=== PATIENT | female | born 1960 | race Caucasian/White ===

== ENCOUNTER 2016-11-16 17:30 | Inpatient (IN) | payer OTHER, MEDICARE, MEDICAID ==
[~2016-11-16] VITALS: Ht 167.6 cm; Wt 110.8 kg
[2016-11-16] VITALS (10 sets, daily range): BP systolic 116–128; BP diastolic 5–65; PULSE 59–70; TEMP 97–98.2
[~2016-11-16 17:30] MED LIST changes: -ANECREAM30; -APRESOLINE50 MG PO; -BENADRYL25 M2 PO; -CARDURA4 MG PO; -CENTRUM SILVER1 TA2 PO; -FISH OIL 1000MG1 CAP PO; -LASIX 80MG TABL80 MG PO; -LOPRESSOR 550 MG/TAB PO; -MELAT3MGTAB PO; -MIRALAX PA17 GM/Dose; -NORCO 325 MG-51 TAB PO; -NOVOLOG FLEX100 U/ML SQ; -PROBIOTIC FORMU1 CAP PO; -REFRESH TEARS 330 ML OD; -RENAGEL800 MG PO; -ROXICODONE 55 MG/TAB PO; -SENNA8.6 MG PO; -TRESIBA FL100 UNIT/1 SQ; -TYLENOL 8 HR PO; -VITAMIN D 50,1.25 MG PO; -VITAMINC1000TA PO; -ZAROXOLYN5 MG PO; -[UNRECOGNIZED DRUG - OTHER] PO
[2016-11-16 18:47] LABS: MEAN CELL VOLUME 103 fl (80.0-100.0); MEAN CORPUSCULAR HGB CONC 30 g/dl (33.0-37.0); MEAN PLATELET VOLUME 9.4 fl (7.4-10.4); PLATELET COUNT 195 K/mm3 (130-400); RED BLOOD COUNT 1.51 M/mm3 (4.10-5.30); REDCELL DISTRIBUTION WIDTH-CV 15.7 % (11.5-14.5); WHITE BLOOD COUNT 10.2 K/mm3 (4.8-10.8)
[2016-11-16 18:48] LABS: HEMATOCRIT 15.6 % (37.0-47.0); MEAN CORPUSCULAR HEMOGLOBIN 30 pg (27.0-31.0)
[2016-11-16 18:49] LABS: ADD PATHOLOGY DIFF REVIEW NO; HEMOGLOBIN 4.6 g/dl (12.5-16.0)
[2016-11-16 19:00] LABS: POTASSIUM 4.5 mmol/L (3.4-5.0)
[2016-11-16 19:01] LABS: ADJUSTED CALCIUM 9.5 mg/dL (8.4-10.2); ALBUMIN 3.1 gm/dL (3.5-5.0); BILIRUBIN,TOTAL 0.9 mg/dL (0.0-1.0); CALCIUM 8.8 mg/dL (8.4-10.2); CREATININE, serum 3.59 mg/dL (0.52-1.25); TOTAL PROTEIN 6.4 gm/dL (6.4-8.2)
[2016-11-16] MEDS ORDERED: LASIX 80MG TABL80 MG PO (19:20)
[2016-11-16] MEDS ORDERED: NORCO 325 MG-51 TAB PO (19:20)
[2016-11-16] MEDS ORDERED: ZAROXOLYN5 MG PO (19:21)
[2016-11-16] MEDS ORDERED: VITAMIN D 50,1.25 MG PO (19:22)
[2016-11-16] MEDS ORDERED: CATAPRES 0.1MG0.1 MG PO (19:23)
[2016-11-16] MEDS ORDERED: MELAT3MGTAB PO (19:23)
[2016-11-16] MEDS ORDERED: APRESOLINE50 MG PO (19:24)
[2016-11-16] MEDS ORDERED: CARDURA4 MG PO (19:24)
[2016-11-16] MEDS ORDERED: TRESIBA FL100 UNIT/1 SQ (19:25)
[2016-11-16] MEDS ORDERED: NOVOLOG FLEX100 U/ML SQ (19:25)
[2016-11-16] MEDS ORDERED: LIPITOR20 MG PO (19:26)
[2016-11-16] MEDS ORDERED: NORVASC 10MG10 MG PO (19:26)
[2016-11-16] MEDS ORDERED: LOPRESSOR 550 MG/TAB PO (19:26)
[2016-11-16] MEDS ORDERED: VITAMINC1000TA PO (19:27)
[2016-11-16] MEDS ORDERED: TYLENOL 8 HR PO (19:27)
[2016-11-16] MEDS ORDERED: FISH OIL 1000MG1 CAP PO (19:28)
[2016-11-16] MEDS ORDERED: ASPIRIN 81M81 MG/TA2 PO (19:29)
[2016-11-16 20:02] LABS: BAND 8 % (0-10); EOSINOPHIL 2 % (0-4); HYPOCHROMIA 1+; MYELOCYTE 1 % (0-0); NEUTROPHILS 82 % (42.0-75.2); PLATELET ESTIMATE NORMAL (NORMAL); TOTAL CELLS COUNTED 100
[2016-11-17] VITALS (12 sets, daily range): BP systolic 118–145; BP diastolic 53–71; PULSE 57–71; TEMP 97.1–98.7
[2016-11-17 06:47] LABS: BASO % 0.2 % (0.0-2.0); EOS # 0.4 (0.0-0.7); EOS % 4.4 % (0-4.0); GRAN # 6.7 (1.4-6.5); GRAN % 75.5 % (42.2-75.2); LYMPH # 0.7 (1.2-3.4); LYMPH % 7.7 % (20.0-51.0); MEAN CORPUSCULAR HGB CONC 31 g/dl (33.0-37.0); MEAN PLATELET VOLUME 9.1 fl (7.4-10.4); PLATELET COUNT 177 K/mm3 (130-400); REDCELL DISTRIBUTION WIDTH-CV 18.2 % (11.5-14.5); WHITE BLOOD COUNT 8.8 K/mm3 (4.8-10.8)
[2016-11-17 06:50] LABS: HEMATOCRIT 19.5 % (37.0-47.0); HEMOGLOBIN 6.1 g/dl (12.5-16.0); MEAN CELL VOLUME 98 fl (80.0-100.0); MEAN CORPUSCULAR HEMOGLOBIN 31 pg (27.0-31.0)
[2016-11-17 07:08] LABS: CALCIUM 8.6 mg/dL (8.4-10.2); CREATININE, serum 3.62 mg/dL (0.52-1.25); POTASSIUM 4.4 mmol/L (3.4-5.0)
[2016-11-17 12:22] LABS: HEMATOCRIT 23.6 % (37.0-47.0); HEMOGLOBIN 7.7 g/dl (12.5-16.0)
[2016-11-18] VITALS (10 sets, daily range): BP systolic 115–148; BP diastolic 41–58; PULSE 62–91; TEMP 98.2–99.7
[2016-11-18 07:33] LABS: BASO % 0.5 % (0.0-2.0); CALCIUM 8.9 mg/dL (8.4-10.2); CREATININE, serum 2.67 mg/dL (0.52-1.25); EOS # 0.3 (0.0-0.7); EOS % 3.6 % (0-4.0); GRAN # 6.7 (1.4-6.5); GRAN % 75.1 % (42.2-75.2); LYMPH # 0.6 (1.2-3.4); MEAN CELL VOLUME 97 fl (80.0-100.0); MEAN CORPUSCULAR HGB CONC 31 g/dl (33.0-37.0); MEAN PLATELET VOLUME 9.7 fl (7.4-10.4); MONO # 1.1 (0.1-0.6); MONO % 12.8 % (1.7-9.3); PLATELET COUNT 201 K/mm3 (130-400); POTASSIUM 3.9 mmol/L (3.4-5.0); RED BLOOD COUNT 2.36 M/mm3 (4.10-5.30); REDCELL DISTRIBUTION WIDTH-CV 16.9 % (11.5-14.5); WHITE BLOOD COUNT 8.9 K/mm3 (4.8-10.8)
[2016-11-18 07:38] LABS: HEMATOCRIT 22.9 % (37.0-47.0); HEMOGLOBIN 7.2 g/dl (12.5-16.0); MEAN CORPUSCULAR HEMOGLOBIN 31 pg (27.0-31.0)
[2016-11-19 04:29] VITALS: BP 152/59; PULSE 63; TEMP 98.7
[2016-11-19 07:52] VITALS: BP 156/64; PULSE 70; TEMP 98.6
[2016-11-19 07:53] LABS: BASO % 0.4 % (0.0-2.0); EOS # 0.4 (0.0-0.7); EOS % 3.4 % (0-4.0); GRAN % 77.4 % (42.2-75.2); LYMPH # 0.6 (1.2-3.4); LYMPH % 5.4 % (20.0-51.0); MEAN CELL VOLUME 96 fl (80.0-100.0); MEAN CORPUSCULAR HGB CONC 32 g/dl (33.0-37.0); MEAN PLATELET VOLUME 9.4 fl (7.4-10.4); MONO # 1.3 (0.1-0.6); MONO % 12.5 % (1.7-9.3); PLATELET COUNT 223 K/mm3 (130-400); RED BLOOD COUNT 2.77 M/mm3 (4.10-5.30); REDCELL DISTRIBUTION WIDTH-CV 16.1 % (11.5-14.5); WHITE BLOOD COUNT 10.3 K/mm3 (4.8-10.8)
[2016-11-19 08:05] LABS: HEMATOCRIT 26.5 % (37.0-47.0); HEMOGLOBIN 8.4 g/dl (12.5-16.0); MEAN CORPUSCULAR HEMOGLOBIN 30 pg (27.0-31.0)
[2016-11-19 08:54] LABS: ADJUSTED CALCIUM 9.8 mg/dL (8.4-10.2); BILIRUBIN,TOTAL 1.1 mg/dL (0.0-1.0); CREATININE, serum 3.18 mg/dL (0.52-1.25); POTASSIUM 4.2 mmol/L (3.4-5.0); TOTAL PROTEIN 6.3 gm/dL (6.4-8.2)
[2016-11-19 15:26] VITALS: BP 151/56; PULSE 70; TEMP 98.4
[2016-11-19 19:24] VITALS: BP 144/52; PULSE 78; TEMP 99.1
[2016-11-19 23:28] VITALS: BP 148/53; PULSE 75; TEMP 99.1
[2016-11-20 03:44] VITALS: BP 143/54; PULSE 71; TEMP 98.4
[2016-11-20 07:42] VITALS: BP 139/49; PULSE 71; TEMP 99.2
[2016-11-20] MEDS ORDERED: APRESOLINE50 MG PO (10:49)
[2016-11-20] MEDS ORDERED: VITAMIN D 50,1.25 MG PO (10:50)
[2017-03-17] MEDS ORDERED: ULTRAM 50MG TAB50 MG PO (11:48)
[2017-03-17] MEDS ORDERED: NORVASC 10MG10 MG PO (11:48)
[2017-03-17] MEDS ORDERED: REFRESH TEARS 330 ML OD (11:49)
[2017-03-17] MEDS ORDERED: PROBIOTIC FORMU1 CAP PO (11:51)
[2017-03-17] MEDS ORDERED: MIRALAX PA17 GM/Dose (11:52)
[2017-03-17] MEDS ORDERED: ANECREAM30 (11:53)
[2017-03-17] MEDS ORDERED: CENTRUM SILVER1 TA2 PO (11:54)
[2017-03-17] MEDS ORDERED: SENNA8.6 MG PO (11:54)
[2017-03-17] MEDS ORDERED: RENAGEL800 MG PO (11:55)
[2017-03-17] MEDS ORDERED: [UNRECOGNIZED DRUG - OTHER] PO (11:58)
== END 2016-11-20 12:48 | DRG 682 ==
LOC: ICU 17:30 → MEDICAL 17:30
PROVIDERS: Internal Medicine
PROC: 5A1D60Z (ICD-10-PCS; principal; 2016-11-17)
DX: I12.0 Hypertensive chronic kidney disease with stage 5 chronic kidney disease or end stage renal disease (principal); N18.6 End stage renal disease; Z68.41 Body mass index [BMI] 40.0-44.9, adult; D63.1 Anemia in chronic kidney disease; E11.22 Type 2 diabetes mellitus with diabetic chronic kidney disease; E87.70 Fluid overload, unspecified; E66.01 Morbid (severe) obesity due to excess calories; M25.561 Pain in right knee; L89.152 Pressure ulcer of sacral region, stage 2; Z99.2 Dependence on renal dialysis
CPT/HCPCS: J0882; J1815; J7050; P9016

== ENCOUNTER → 2016-11-16 | Outpatient (REF) ==
[2016-11-16] VITALS (264 sets, daily range): BP systolic 121; BP diastolic 51; PULSE 66; TEMP 97.4; O2SAT 85–100
[~2016-11-16] VITALS: Ht 167.6 cm; Wt 117.2 kg
[~2016-11-16] MED LIST: ANECREAM30; APRESOLINE 25MG25 MG PO; APRESOLINE50 MG PO; ASPIRIN 81M81 MG/TA2 PO; BENADRYL25 M2 PO; CARDURA4 MG PO; CATAPRES 0.1MG0.1 MG PO; CENTRUM SILVER1 TA2 PO; COLACE 100100 MG/CAP PO; FERROUS SU325 MG/TAB PO; FISH OIL 1000MG1 CAP PO; GLUCOPHAGE1000 MG PO; HUMALOG100 U/ML SQ; HYTRIN 2MG CAPSU2 MG PO; JANUVIA25 MG PO; KAYEXALATE15 GM/60 M PO; KLONOPIN 0.5MG0.5 MG PO; LANTUS100 U/ML SQ; LASIX 40MG TABL40 MG PO; LASIX 80MG TABL80 MG PO; LIPITOR 10MG10 MG PO; LIPITOR20 MG PO; LOPRESSOR 550 MG/TAB PO; MELAT3MGTAB PO; MIRALAX PA17 GM/Dose; NATURAL VITAM1000 MG PO; NATURE'S BLEN5000 IU PO; NORCO 325 MG-51 TAB PO; NORVASC 10MG10 MG PO; NOVOLOG 100U100 U/M1 SQ; NOVOLOG FLEX100 U/ML SQ; OMEGA-3 FISH1000 MG PO; PEPCID 20MG TAB20 MG PO; PERCOCET 325 MG1 TA2 PO; PRINZIDE 12.5 M1 TAB PO; PROBIOTIC FORMU1 CAP PO; REFRESH TEARS 330 ML OD; RENAGEL800 MG PO; RENVELA800 MG PO; ROXICODONE 55 MG/TAB PO; SENNA8.6 MG PO; SODIUM BICARBO650 MG PO; TOPROL XL 25MG25 MG PO; TRESIBA FL100 UNIT/1 SQ; TYLENOL 325MG325 MG PO; TYLENOL 8 HR PO; ULTRAM 50MG TAB50 MG PO; VITAMIN D 50,1.25 MG PO; VITAMINC1000TA PO; ZAROXOLYN5 MG PO; [UNRECOGNIZED DRUG - OTHER] PO
[2016-11-16 16:35] LABS: HEMATOCRIT 15.4 % (37.0-47.0)
[2016-11-16 16:36] LABS: HEMOGLOBIN 4.6 g/dl (12.5-16.0)
[2016-11-17] VITALS (788 sets, daily range): O2SAT 72–100
== END ==
LOC: ZCOL.LAB 16:30
PROVIDERS: Internal Medicine
DX: Z01.89 Encounter for other specified special examinations (principal)

== ENCOUNTER → 2016-11-24 | Outpatient (CLI) | payer OTHER, MEDICARE, MEDICAID ==
[~2016-11-24] MED LIST changes: +ANECREAM30; +APRESOLINE50 MG PO; +BENADRYL25 M2 PO; +CARDURA4 MG PO; +CENTRUM SILVER1 TA2 PO; +FISH OIL 1000MG1 CAP PO; +LASIX 80MG TABL80 MG PO; +LOPRESSOR 550 MG/TAB PO; +MELAT3MGTAB PO; +MIRALAX PA17 GM/Dose; +NORCO 325 MG-51 TAB PO; +NOVOLOG FLEX100 U/ML SQ; +PROBIOTIC FORMU1 CAP PO; +REFRESH TEARS 330 ML OD; +RENAGEL800 MG PO; +ROXICODONE 55 MG/TAB PO; +SENNA8.6 MG PO; +TRESIBA FL100 UNIT/1 SQ; +TYLENOL 8 HR PO; +VITAMIN D 50,1.25 MG PO; +VITAMINC1000TA PO; +ZAROXOLYN5 MG PO; +[UNRECOGNIZED DRUG - OTHER] PO
[2016-11-24 17:57] LABS: BASO # 0.1 (0.0-0.2); BASO % 0.5 % (0.0-2.0); EOS # 0.2 (0.0-0.7); EOS % 1.9 % (0-4.0); GRAN # 10.2 (1.4-6.5); GRAN % 80.8 % (42.2-75.2); HEMATOCRIT 25.9 % (37.0-47.0); HEMOGLOBIN 8.2 g/dl (12.5-16.0); LYMPH # 0.6 (1.2-3.4); LYMPH % 4.5 % (20.0-51.0); MEAN CELL VOLUME 96 fl (80.0-100.0); MEAN CORPUSCULAR HEMOGLOBIN 30 pg (27.0-31.0); MEAN CORPUSCULAR HGB CONC 32 g/dl (33.0-37.0); MEAN PLATELET VOLUME 9.9 fl (7.4-10.4); MONO # 1.5 (0.1-0.6); MONO % 11.5 % (1.7-9.3); PLATELET COUNT 247 K/mm3 (130-400); RED BLOOD COUNT 2.71 M/mm3 (4.10-5.30); WHITE BLOOD COUNT 12.7 K/mm3 (4.8-10.8)
== END ==
LOC: ZCOL.LAB 17:52
PROVIDERS: Internal Medicine
DX: Z01.89 Encounter for other specified special examinations (principal)

== ENCOUNTER → 2016-11-30 | Outpatient (CLI) | payer OTHER, MEDICARE, MEDICAID | LOC: WCC 10:30 | DX: L89.890 Pressure ulcer of other site, unstageable (principal); L89.899 Pressure ulcer of other site, unspecified stage; E11.9 Type 2 diabetes mellitus without complications | CPT/HCPCS: 17719; 27510; A6197; A6212; G0463 ==

== ENCOUNTER → 2016-12-14 | Outpatient (CLI) | payer OTHER, MEDICARE, MEDICAID | LOC: WCC 09:28 | DX: E11.622 Type 2 diabetes mellitus with other skin ulcer (principal); L97.129 Non-pressure chronic ulcer of left thigh with unspecified severity; L97.119 Non-pressure chronic ulcer of right thigh with unspecified severity; L98.499 Non-pressure chronic ulcer of skin of other sites with unspecified severity; E11.22 Type 2 diabetes mellitus with diabetic chronic kidney disease; N18.6 End stage renal disease; E66.01 Morbid (severe) obesity due to excess calories | CPT/HCPCS: 17717; A6212; G0463 ==

== ENCOUNTER → 2017-03-14 | Outpatient (CLI) | payer OTHER, MEDICARE, MEDICAID | LOC: COL.RAD 12:30 | DX: M75.82 Other shoulder lesions, left shoulder (principal); M19.012 Primary osteoarthritis, left shoulder; M25.412 Effusion, left shoulder ==

== ENCOUNTER → 2017-03-20 | Outpatient (CLI) | payer OTHER, MEDICARE, MEDICAID ==
[~2017-03-20] VITALS: Ht 167.6 cm; Wt 83.1 kg
[2017-03-20 07:43] VITALS: BP 160/73; PULSE 65
[2017-03-20 08:25] VITALS: BP 156/68; PULSE 65
== END ==
LOC: COL.RAD 07:13
DX: Z45.2 Encounter for adjustment and management of vascular access device (principal)

== ENCOUNTER 2017-04-03 09:54 | Outpatient (CLI) | payer OTHER, MEDICARE, MEDICAID ==
[~2017-04-03] VITALS: Ht 167.7 cm; Wt 86.8 kg
[~2017-04-03 09:54] MED LIST changes: -BENADRYL25 M2 PO; -ROXICODONE 55 MG/TAB PO
[2017-04-03 10:21] VITALS: BP 125/36; PULSE 79; TEMP 97.7
[2017-04-03] MEDS ORDERED: BENADRYL25 M2 PO (10:39)
[2017-04-03 12:05] VITALS: BP 163/37; PULSE 61
[2017-04-03 13:05] VITALS: BP 132/34; PULSE 62
[2017-04-03 13:08] VITALS: BP 136/27; PULSE 61
[2017-04-03 13:20] VITALS: BP 138/36; PULSE 62
[2017-04-03 13:45] VITALS: BP 135/43; PULSE 62
== END 2017-04-03 14:02 | disposition home or self-care (01) ==
LOC: COL.CAR 09:54
DX: T82.898A Other specified complication of vascular prosthetic devices, implants and grafts, initial encounter (principal); M79.81 Nontraumatic hematoma of soft tissue; I12.0 Hypertensive chronic kidney disease with stage 5 chronic kidney disease or end stage renal disease; E11.22 Type 2 diabetes mellitus with diabetic chronic kidney disease; N18.6 End stage renal disease; Z99.2 Dependence on renal dialysis
CPT/HCPCS: Q9967

== ENCOUNTER 2017-05-01 22:26 | Emergency (ER) | payer OTHER, MEDICARE, MEDICAID ==
[~2017-05-01] VITALS: Ht 167.6 cm; Wt 88.2 kg
[~2017-05-01 22:26] MED LIST changes: +BENADRYL25 M2 PO
[2017-05-01 22:29] VITALS: TEMP 98.4
[2017-05-01 23:24] LABS: BASO # 0.1 (0.0-0.2); BASO % 0.8 % (0.0-2.0); EOS # 0.9 (0.0-0.7); EOS % 7.3 % (0-4.0); GRAN # 8.9 (1.4-6.5); GRAN % 72.5 % (42.2-75.2); HEMATOCRIT 38.5 % (37.0-47.0); LYMPH # 1.4 (1.2-3.4); LYMPH % 11.6 % (20.0-51.0); MEAN CELL VOLUME 95 fl (80.0-100.0); MEAN CORPUSCULAR HEMOGLOBIN 32 pg (27.0-31.0); MEAN CORPUSCULAR HGB CONC 34 g/dl (33.0-37.0); MEAN PLATELET VOLUME 9.3 fl (7.4-10.4); MONO # 0.9 (0.1-0.6); MONO % 7.3 % (1.7-9.3); PLATELET COUNT 170 K/mm3 (130-400); RED BLOOD COUNT 4.07 M/mm3 (4.10-5.30); REDCELL DISTRIBUTION WIDTH-CV 12.8 % (11.5-14.5); WHITE BLOOD COUNT 12.3 K/mm3 (4.8-10.8)
[2017-05-01 23:33] LABS: ADJUSTED CALCIUM 10.7 mg/dL (8.4-10.2); BILIRUBIN,TOTAL 0.5 mg/dL (0.0-1.0); CALCIUM 10.7 mg/dL (8.4-10.2); POTASSIUM 5.4 mmol/L (3.4-5.0); TOTAL PROTEIN 7.6 gm/dL (6.4-8.2)
[2017-05-01 23:34] LABS: CREATININE, serum 4.02 mg/dL (0.52-1.25)
[2017-05-01 23:38] LABS: PH 6 (5-8); SQUAMOUS EPITHELIAL 0-2 /hpf; URINE APPEARANCE Hazy; URINE BACTERIA None Seen /hpf; URINE BILIRUBIN Negative (NEGATIVE); URINE BLOOD Negative (NEGATIVE); URINE COLOR Yellow; URINE GLUCOSE 3+ (NEGATIVE); URINE KETONE Negative (NEGATIVE); URINE UROBILINOGEN Negative (NEGATIVE); URINE WBC 0-2 /hpf
[2017-05-02] MEDS ORDERED: ROXICODONE 55 MG/TAB PO (00:10)
[2017-05-02 00:30] VITALS: BP 151/66; PULSE 61
== END 2017-05-02 00:30 ==
LOC: COL.ER 22:26
PROVIDERS: Emergency Medicine
DX: R10.9 Unspecified abdominal pain (principal); E11.22 Type 2 diabetes mellitus with diabetic chronic kidney disease; I12.0 Hypertensive chronic kidney disease with stage 5 chronic kidney disease or end stage renal disease; N18.6 End stage renal disease; I50.9 Heart failure, unspecified; Z99.2 Dependence on renal dialysis
CPT/HCPCS: J2405; J3010

== ENCOUNTER → 2017-06-09 | Outpatient (REF) ==
[~2017-06-09] MED LIST changes: +ROXICODONE 55 MG/TAB PO
[2017-06-09 04:25] LABS: MEAN CELL VOLUME 98 fl (80.0-100.0); MEAN CORPUSCULAR HGB CONC 33 g/dl (33.0-37.0); MEAN PLATELET VOLUME 10.7 fl (7.4-10.4); PLATELET COUNT 113 K/mm3 (130-400); RED BLOOD COUNT 2.71 M/mm3 (4.10-5.30); REDCELL DISTRIBUTION WIDTH-CV 13.5 % (11.5-14.5); WHITE BLOOD COUNT 12.2 K/mm3 (4.8-10.8)
[2017-06-09 04:42] LABS: HEMATOCRIT 26.5 % (37.0-47.0); HEMOGLOBIN 8.8 g/dl (12.5-16.0); MEAN CORPUSCULAR HEMOGLOBIN 32 pg (27.0-31.0)
[2017-06-09 04:43] LABS: ADD PATHOLOGY DIFF REVIEW NO
[2017-06-09 04:51] LABS: ANISOCYTOSIS 1+; BAND 4 % (0-10); EOSINOPHIL 1 % (0-4); HYPOCHROMIA 1+; NEUTROPHILS 85 % (42.0-75.2); POLYCHROMASIA 1+; ROULEAUX 1+; TOTAL CELLS COUNTED 100
[2017-06-09 04:52] LABS: MICROCYTOSIS 1+; POIKILOCYTOSIS 1+
== END ==
LOC: ZCOL.LAB 04:20
PROVIDERS: Internal Medicine
DX: Z01.89 Encounter for other specified special examinations (principal)

== ENCOUNTER → 2017-06-17 | Outpatient (CLI) | payer OTHER, MEDICARE, MEDICAID | LOC: ZCOL.LAB 15:30 | DX: K59.09 Other constipation (principal) ==

== ENCOUNTER → 2017-06-25 | Outpatient (CLI) | payer OTHER, MEDICARE, MEDICAID | LOC: ZCOL.LAB 10:21 | DX: R19.5 Other fecal abnormalities (principal) ==

== ENCOUNTER → 2017-08-02 | Outpatient (CLI) | payer OTHER, MEDICARE, MEDICAID ==
[~2017-08-02] MED LIST changes: +ASPIRIN E.C. 8181 MG PO; +CENTRUM SILVER1 TAB; +CLARITIN LIQUI-10 MG PO; +IMODIUM 2MG CAPS2 MG PO; +LEVAQUIN 5500 MG/TA1 PO; +REFRESH TEARS 330 ML OP; +ZOFRAN 4MG T4 MG/TAB PO
== END ==
LOC: COL.RAD 13:42
DX: M79.89 Other specified soft tissue disorders (principal)

== ENCOUNTER 2017-08-03 06:32 | Emergency (ER) | payer OTHER, MEDICARE, MEDICAID ==
[~2017-08-03] VITALS: Ht 167.6 cm; Wt 100.2 kg
[~2017-08-03 06:32] MED LIST changes: -ASPIRIN E.C. 8181 MG PO; -CENTRUM SILVER1 TAB; -CLARITIN LIQUI-10 MG PO; -IMODIUM 2MG CAPS2 MG PO; -LEVAQUIN 5500 MG/TA1 PO; -REFRESH TEARS 330 ML OP; -ZOFRAN 4MG T4 MG/TAB PO
[2017-08-03 06:38] VITALS: TEMP 98.8
[2017-08-03] MEDS ORDERED: ASPIRIN E.C. 8181 MG PO (07:24)
[2017-08-03] MEDS ORDERED: CENTRUM SILVER1 TAB (07:25)
[2017-08-03] MEDS ORDERED: REFRESH TEARS 330 ML OP (07:27)
[2017-08-03] MEDS ORDERED: ZOFRAN 4MG T4 MG/TAB PO (07:28)
[2017-08-03] MEDS ORDERED: IMODIUM 2MG CAPS2 MG PO (07:29)
[2017-08-03] MEDS ORDERED: CLARITIN LIQUI-10 MG PO (07:29)
[2017-08-03] MEDS ORDERED: NORVASC 10MG10 MG PO (07:31)
[2017-08-03 07:50] LABS: HEMATOCRIT 32.9 % (37.0-47.0); HEMOGLOBIN 10.9 g/dl (12.5-16.0); MEAN CELL VOLUME 97 fl (80.0-100.0); MEAN CORPUSCULAR HEMOGLOBIN 32 pg (27.0-31.0); MEAN CORPUSCULAR HGB CONC 33 g/dl (33.0-37.0); MEAN PLATELET VOLUME 9.8 fl (7.4-10.4); PLATELET COUNT 178 K/mm3 (130-400); RED BLOOD COUNT 3.38 M/mm3 (4.10-5.30); WHITE BLOOD COUNT 17.5 K/mm3 (4.8-10.8)
[2017-08-03 07:51] LABS: ADD PATHOLOGY DIFF REVIEW NO
[2017-08-03 08:01] LABS: ADJUSTED CALCIUM 10.3 mg/dL (8.4-10.2); ALBUMIN 3.4 gm/dL (3.5-5.0); BILIRUBIN,TOTAL 0.8 mg/dL (0.0-1.0); CALCIUM 9.8 mg/dL (8.4-10.2); CREATININE, serum 3.71 mg/dL (0.52-1.25); POTASSIUM 4.4 mmol/L (3.4-5.0); TOTAL PROTEIN 6.9 gm/dL (6.4-8.2)
[2017-08-03 08:05] LABS: COLLECTION METHOD CATHETER
[2017-08-03 08:07] LABS: BAND 6 % (0-10); EOSINOPHIL 2 % (0-4); LYMPHOCYTE 6 % (20.0-51.0); NEUTROPHILS 83 % (42.0-75.2); PLATELET ESTIMATE NORMAL (NORMAL); TOTAL CELLS COUNTED 100
[2017-08-03 08:10] LABS: HYPOCHROMIA 1+
[2017-08-03 08:16] LABS: PH 7 (5-8); URINE APPEARANCE Cloudy; URINE BACTERIA Rare /hpf; URINE BILIRUBIN Negative (NEGATIVE); URINE BLOOD Negative (NEGATIVE); URINE COLOR Yellow; URINE GLUCOSE 3+ (NEGATIVE); URINE KETONE Negative (NEGATIVE); URINE LEUKOCYTE ESTERASE 3+ (NEGATIVE); URINE PROTEIN(semi-quant) 3+ (NEGATIVE); URINE RBC 0-2 /hpf; URINE UROBILINOGEN Negative (NEGATIVE); URINE WBC >50 /hpf
[2017-08-03] MEDS ORDERED: LEVAQUIN 5500 MG/TA1 PO (08:17)
[2017-08-03 08:20] LABS: C-REACTIVE PROTEIN 22.1 mg/dL (0.0-0.9)
[2017-08-03 10:45] VITALS: BP 99/72; PULSE 74
== END 2017-08-03 10:45 | disposition home or self-care (01) ==
LOC: COL.ER 06:32
PROVIDERS: Family Medicine
DX: L03.116 Cellulitis of left lower limb (principal); I13.0 Hypertensive heart and chronic kidney disease with heart failure and stage 1 through stage 4 chronic kidney disease, or unspecified chronic kidney disease; N18.9 Chronic kidney disease, unspecified; I50.9 Heart failure, unspecified; G62.9 Polyneuropathy, unspecified; Z79.82 Long term (current) use of aspirin

== ENCOUNTER → 2017-08-12 | Outpatient (CLI) | payer OTHER, MEDICARE, MEDICAID ==
[~2017-08-12] MED LIST changes: +ASPIRIN E.C. 8181 MG PO; +CENTRUM SILVER1 TAB; +CLARITIN LIQUI-10 MG PO; +IMODIUM 2MG CAPS2 MG PO; +LEVAQUIN 5500 MG/TA1 PO; +REFRESH TEARS 330 ML OP; +ZOFRAN 4MG T4 MG/TAB PO
== END ==
LOC: ZCOL.LAB 12:26
DX: Z01.89 Encounter for other specified special examinations (principal)

== ENCOUNTER → 2017-09-05 | Outpatient (CLI) | payer OTHER, MEDICARE, MEDICAID ==
[2017-09-05 08:05] LABS: BASO # 0.1 (0.0-0.2); BASO % 0.8 % (0.0-2.0); EOS # 0.9 (0.0-0.7); EOS % 7.9 % (0-4.0); GRAN # 7.8 (1.4-6.5); GRAN % 70.7 % (42.2-75.2); LYMPH # 1.4 (1.2-3.4); LYMPH % 12.7 % (20.0-51.0); MEAN CELL VOLUME 98 fl (80.0-100.0); MEAN CORPUSCULAR HGB CONC 33 g/dl (33.0-37.0); MONO # 0.8 (0.1-0.6); PLATELET COUNT 129 K/mm3 (130-400); RED BLOOD COUNT 3.18 M/mm3 (4.10-5.30)
[2017-09-05 08:06] LABS: HEMOGLOBIN 10.3 g/dl (12.5-16.0); MEAN CORPUSCULAR HEMOGLOBIN 32 pg (27.0-31.0)
== END ==
LOC: ZCOL.LAB 07:46
PROVIDERS: Internal Medicine
DX: E11.22 Type 2 diabetes mellitus with diabetic chronic kidney disease (principal); R79.89 Other specified abnormal findings of blood chemistry; Z79.82 Long term (current) use of aspirin; Z99.2 Dependence on renal dialysis; Z88.1 Allergy status to other antibiotic agents; Z88.0 Allergy status to penicillin; Z88.8 Allergy status to other drugs, medicaments and biological substances

== ENCOUNTER → 2017-12-05 | Outpatient (CLI) | payer OTHER, MEDICARE, MEDICAID ==
[2017-12-05 14:47] LABS: COLLECTION METHOD CLEAN CATCH
[2017-12-05 14:55] LABS: BUDDING YEAST Present /hpf; PH 5 (5-8); URINE APPEARANCE Hazy; URINE BACTERIA None Seen /hpf; URINE BILIRUBIN Negative (NEGATIVE); URINE BLOOD Negative (NEGATIVE); URINE COLOR Yellow; URINE GLUCOSE 2+ (NEGATIVE); URINE KETONE Negative (NEGATIVE); URINE LEUKOCYTE ESTERASE Negative (NEGATIVE); URINE NITRATE Negative (NEGATIVE); URINE PROTEIN(semi-quant) 3+ (NEGATIVE); URINE RBC 0-2 /hpf; URINE UROBILINOGEN Negative (NEGATIVE)
== END ==
LOC: ZCOL.LAB 14:44
PROVIDERS: Internal Medicine
DX: E11.22 Type 2 diabetes mellitus with diabetic chronic kidney disease (principal)

== ENCOUNTER 2017-12-16 04:16 | Emergency (ER) | payer OTHER, MEDICARE, MEDICAID ==
[2017-12-16 04:20] VITALS: TEMP 97.1
[2017-12-16 04:48] LABS: BASO # 0.1 (0.0-0.2); BASO % 0.5 % (0.0-2.0); EOS # 0.3 (0.0-0.7); EOS % 2.3 % (0-4.0); GRAN # 11.1 (1.4-6.5); GRAN % 77.3 % (42.2-75.2); HEMATOCRIT 28.4 % (37.0-47.0); HEMOGLOBIN 9.3 g/dl (12.5-16.0); LYMPH # 1.5 (1.2-3.4); LYMPH % 10.5 % (20.0-51.0); MEAN CELL VOLUME 101 fl (80.0-100.0); MEAN CORPUSCULAR HEMOGLOBIN 33 pg (27.0-31.0); MEAN CORPUSCULAR HGB CONC 33 g/dl (33.0-37.0); MEAN PLATELET VOLUME 9.9 fl (7.4-10.4); MONO # 1.2 (0.1-0.6); MONO % 8.1 % (1.7-9.3); PLATELET COUNT 180 K/mm3 (130-400); RED BLOOD COUNT 2.81 M/mm3 (4.10-5.30); REDCELL DISTRIBUTION WIDTH-CV 13.8 % (11.5-14.5)
[2017-12-16 04:57] LABS: ALANINE AMINOTRANSFERASE 33 U/L (9-52); ALBUMIN 3.7 gm/dL (3.5-5.0); ALKALINE PHOSPHATASE 105 U/L (50-136); ANION GAP 14 mmol/L (7-16); AST,SGOT 28 U/L (15-37); BILIRUBIN,TOTAL 0.3 mg/dL (0.0-1.0); BLOOD UREA NITROGEN 35 mg/dL (7-17); CALCIUM 10.1 mg/dL (8.4-10.2); CARBON DIOXIDE 17 mmol/L (22-30); CHLORIDE 100 mmol/L (98-107); GLUCOSE 227 mg/dL (74-106); SODIUM 131 mmol/L (137-145); TOTAL PROTEIN 7.1 gm/dL (6.4-8.2)
[2017-12-16 04:59] LABS: CREATININE, serum 4.11 mg/dL (0.52-1.25); POTASSIUM 6.3 mmol/L (3.4-5.0); PROTHROMBIN TIME 11.3 SECONDS (9.7-12.8)
[2017-12-16 05:09] LABS: TROPONIN-I < 0.012 ng/mL (0.000-0.034)
[2017-12-16 05:51] VITALS: BP 111/47; PULSE 34
[2017-12-16] MEDS ORDERED: LIPITOR 10MG10 MG PO (06:15)
[2017-12-16] MEDS ORDERED: REGLAN 5MG T5 MG/TAB PO (06:16)
[2017-12-16] MEDS ORDERED: AMITRIPTYLINE H10 M1 PO (06:16)
== END 2017-12-16 05:52 | disposition short-term general hospital (02) ==
LOC: COL.ER 04:16
PROVIDERS: Emergency Medicine
DX: I44.2 Atrioventricular block, complete (principal); E11.22 Type 2 diabetes mellitus with diabetic chronic kidney disease; I13.2 Hypertensive heart and chronic kidney disease with heart failure and with stage 5 chronic kidney disease, or end stage renal disease; N18.6 End stage renal disease; R79.89 Other specified abnormal findings of blood chemistry; E78.5 Hyperlipidemia, unspecified; Z99.2 Dependence on renal dialysis; Z90.710 Acquired absence of both cervix and uterus; Z90.89 Acquired absence of other organs; Z98.890 Other specified postprocedural states
CPT/HCPCS: J0461; J0610; J1265; J1815

== ENCOUNTER → 2018-01-24 | Outpatient (CLI) | payer OTHER, MEDICARE, MEDICAID ==
[~2018-01-24] MED LIST changes: +AMITRIPTYLINE H10 M1 PO; +REGLAN 5MG T5 MG/TAB PO
== END ==
LOC: COL.RAD 08:55
DX: D47.2 Monoclonal gammopathy (principal)

== ENCOUNTER → 2018-03-02 | Outpatient (CLI) | payer OTHER, MEDICARE, MEDICAID ==
[~2018-03-02] MED LIST changes: +CENTRUM SILVER1 CTB PO; +CLARITIN 1010 MG/TAB; +EPOGEN10000 U/ML; +MIRALAX PA17 GM/Dose PO
== END ==
LOC: COL.RAD 11:00
DX: D47.2 Monoclonal gammopathy (principal); J98.11 Atelectasis; J90 Pleural effusion, not elsewhere classified; E11.22 Type 2 diabetes mellitus with diabetic chronic kidney disease; N18.6 End stage renal disease; Z99.2 Dependence on renal dialysis
CPT/HCPCS: Q9967

== ENCOUNTER → 2018-04-06 | Outpatient (CLI) | payer OTHER, MEDICARE, MEDICAID | LOC: COL.RAD 04-05 08:15 | DX: Z13.89 Encounter for screening for other disorder (principal); M79.89 Other specified soft tissue disorders; R60.0 Localized edema; M43.8X6 Other specified deforming dorsopathies, lumbar region ==

== ENCOUNTER → 2018-04-25 | Outpatient (CLI) | payer OTHER, MEDICARE, MEDICAID ==
[~2018-04-25] VITALS: Ht 167.6 cm; Wt 92.3 kg
[~2018-04-25] MED LIST changes: +DAZIDOX10 MG PO
[2018-04-25 13:34] VITALS: BP 121/64; PULSE 75
[2018-04-25 14:18] VITALS: BP 136/56; PULSE 75
[2018-04-25 14:30] VITALS: BP 136/63; PULSE 72
[2018-04-25 14:45] VITALS: BP 122/55; PULSE 63
== END ==
LOC: COL.RAD 12:18
DX: S32.020A Wedge compression fracture of second lumbar vertebra, initial encounter for closed fracture (principal); S32.000A Wedge compression fracture of unspecified lumbar vertebra, initial encounter for closed fracture; M43.17 Spondylolisthesis, lumbosacral region; M48.061 Spinal stenosis, lumbar region without neurogenic claudication
CPT/HCPCS: G9654; J2250; J2405; J2704

== ENCOUNTER → 2018-06-23 | Outpatient (CLI) | payer OTHER, MEDICARE, MEDICAID ==
[2018-06-23 13:06] LABS: PH 7 (5-8); URINE APPEARANCE Cloudy; URINE BACTERIA Rare /hpf; URINE BILIRUBIN Negative (NEGATIVE); URINE BLOOD Negative (NEGATIVE); URINE COLOR Yellow; URINE GLUCOSE 2+ (NEGATIVE); URINE KETONE Negative (NEGATIVE); URINE LEUKOCYTE ESTERASE 3+ (NEGATIVE); URINE NITRATE Negative (NEGATIVE); URINE PROTEIN(semi-quant) 3+ (NEGATIVE); URINE UROBILINOGEN Negative (NEGATIVE); URINE WBC >50 /hpf
[2018-06-25 16:07] LABS: COLLECTION METHOD RANDOM VOIDED
== END ==
LOC: ZCOL.LAB 08:06
PROVIDERS: Internal Medicine
DX: N39.0 Urinary tract infection, site not specified (principal)

== ENCOUNTER 2018-08-13 01:58 | Inpatient (IN) | payer OTHER, MEDICARE, MEDICAID ==
[2018-08-13] VITALS (586 sets, daily range): BP systolic 74–138; BP diastolic 46–82; PULSE 95–131; TEMP 98–98.7; O2SAT 69–100
[~2018-08-13] VITALS: Ht 167.6 cm; Wt 88.6 kg
[2018-08-13 02:35] LABS: BASO # 0.1 (0.0-0.2); BASO % 0.2 % (0.0-2.0); GRAN # 27.3 (1.4-6.5); GRAN % 86.6 % (42.2-75.2); LYMPH # 1.7 (1.2-3.4); LYMPH % 5.3 % (20.0-51.0); MEAN CELL VOLUME 99 fl (80.0-100.0); MEAN CORPUSCULAR HGB CONC 33 g/dl (33.0-37.0); MEAN PLATELET VOLUME 10.8 fl (7.4-10.4); MONO # 1.9 (0.1-0.6); PLATELET COUNT 244 K/mm3 (130-400); RED BLOOD COUNT 2.81 M/mm3 (4.10-5.30); REDCELL DISTRIBUTION WIDTH-CV 15.4 % (11.5-14.5)
[2018-08-13 02:39] LABS: HEMATOCRIT 27.7 % (37.0-47.0); MEAN CORPUSCULAR HEMOGLOBIN 32 pg (27.0-31.0)
[2018-08-13 02:44] LABS: INR 1.6 (0.8-3.0); PROTHROMBIN TIME 18.6 SECONDS (9.7-12.8)
[2018-08-13 02:45] LABS: ALBUMIN 3.9 gm/dL (3.5-5.0); BILIRUBIN,TOTAL 1.1 mg/dL (0.0-1.0); CALCIUM 9.4 mg/dL (8.4-10.2); TOTAL PROTEIN 7.2 gm/dL (6.4-8.2)
[2018-08-13 02:47] LABS: CREATININE, serum 4.72 mg/dL (0.52-1.25); POTASSIUM 6.8 mmol/L (3.4-5.0)
[2018-08-13 02:53] LABS: BAND 10 % (0-10); LYMPHOCYTE 5 % (20.0-51.0); NEUTROPHILS 80 % (42.0-75.2); PLATELET ESTIMATE NORMAL (NORMAL)
[2018-08-13 02:54] LABS: HYPOCHROMIA 1+
[2018-08-13 02:55] LABS: POLYCHROMASIA 1+
[2018-08-13 02:56] LABS: TROPONIN-I 0.116 ng/mL (0.000-0.034)
[2018-08-13 03:20] LABS: COLLECTION METHOD CATHETER
[2018-08-13] MEDS ORDERED: CENTRUM1 TA1 PO (03:22)
[2018-08-13 03:27] LABS: ARTERIAL BLD GAS O2 SATURATION 85.4 % (92-100); ARTERIAL BLOOD GAS BASE EXCESS -5.4 (-2-2); ARTERIAL BLOOD GAS HCO3 18.1 meq/L (22-26); ARTERIAL BLOOD GAS PCO2 28.6 mmHg (35-45); ARTERIAL BLOOD GAS PO2 56.2 mmHg (80-100); ARTERIAL BLOOD GAS pH 7.42 (7.35-7.45)
[2018-08-13 03:29] LABS: HYALINE CAST >12 /lpf; PH 6 (5-8); URINE APPEARANCE Cloudy; URINE BACTERIA Rare /hpf; URINE BILIRUBIN Negative (NEGATIVE); URINE BLOOD 1+ (NEGATIVE); URINE COLOR Amber; URINE GLUCOSE 1+ (NEGATIVE); URINE KETONE Negative (NEGATIVE); URINE LEUKOCYTE ESTERASE 2+ (NEGATIVE); URINE NITRATE Negative (NEGATIVE); URINE PROTEIN(semi-quant) 2+ (NEGATIVE); URINE UROBILINOGEN Negative (NEGATIVE)
[2018-08-13] MEDS ORDERED: DULCOLAX S10 MG/SUPP RC (03:42)
[2018-08-13] MEDS ORDERED: MILK OF MA400 MG/52 PO (03:42)
[2018-08-13] MEDS ORDERED: ZOFRAN 4MG T4 MG/TAB PO (03:43)
[2018-08-13] MEDS ORDERED: PROTONIX 40MG T40 MG PO (03:44)
[2018-08-13] MEDS ORDERED: GERI-TUSSI100 MG/5 M PO (03:44)
[2018-08-13] MEDS ORDERED: REGLAN 5MG T5 MG/TAB PO (03:44)
[2018-08-13] MEDS ORDERED: PLAVIX 75MG TAB75 MG PO (06:17)
[2018-08-13] MEDS ORDERED: MIRALAX PA17 GM/Dose PO (07:41)
[2018-08-13] MEDS ORDERED: NORVASC 10MG10 MG PO (07:49)
[2018-08-13 09:10] LABS: MEAN CELL VOLUME 95 fl (80.0-100.0); MEAN CORPUSCULAR HGB CONC 34 g/dl (33.0-37.0); MEAN PLATELET VOLUME 10.6 fl (7.4-10.4); PLATELET COUNT 226 K/mm3 (130-400); RED BLOOD COUNT 2.85 M/mm3 (4.10-5.30); REDCELL DISTRIBUTION WIDTH-CV 15.3 % (11.5-14.5)
[2018-08-13 09:13] LABS: CALCIUM 9.4 mg/dL (8.4-10.2); POTASSIUM 5.3 mmol/L (3.4-5.0)
[2018-08-13 09:17] LABS: HEMATOCRIT 27.1 % (37.0-47.0); HEMOGLOBIN 9.1 g/dl (12.5-16.0); MEAN CORPUSCULAR HEMOGLOBIN 32 pg (27.0-31.0)
[2018-08-13 09:22] LABS: CREATININE, serum 4.85 mg/dL (0.52-1.25)
[2018-08-13 09:38] LABS: BAND 11 % (0-10); LYMPHOCYTE 5 % (20.0-51.0); NEUTROPHILS 80 % (42.0-75.2)
[2018-08-13 09:39] LABS: PLATELET ESTIMATE NORMAL (NORMAL)
[2018-08-13 13:07] LABS: PARTIAL THROMBOPLASTIN TIME 39.7 SECONDS (26.0-37.0)
[2018-08-14] VITALS (281 sets, daily range): BP systolic 90–131; BP diastolic 7–94; PULSE 98–130; TEMP 97.4–97.8; O2SAT 89–100
[2018-08-14 05:28] LABS: MEAN CELL VOLUME 95 fl (80.0-100.0); MEAN CORPUSCULAR HGB CONC 34 g/dl (33.0-37.0); MEAN PLATELET VOLUME 10.4 fl (7.4-10.4); PLATELET COUNT 262 K/mm3 (130-400); RED BLOOD COUNT 2.81 M/mm3 (4.10-5.30); REDCELL DISTRIBUTION WIDTH-CV 14.9 % (11.5-14.5)
[2018-08-14 05:31] LABS: HEMATOCRIT 26.7 % (37.0-47.0); MEAN CORPUSCULAR HEMOGLOBIN 32 pg (27.0-31.0)
[2018-08-14 05:41] LABS: ALBUMIN 3.5 gm/dL (3.5-5.0); BILIRUBIN,TOTAL 0.6 mg/dL (0.0-1.0); CALCIUM 9.5 mg/dL (8.4-10.2); POTASSIUM 4.7 mmol/L (3.4-5.0); TOTAL PROTEIN 6.9 gm/dL (6.4-8.2)
[2018-08-14 05:43] LABS: CREATININE, serum 5.82 mg/dL (0.52-1.25)
[2018-08-14 05:46] LABS: ANISOCYTOSIS 1+; LYMPHOCYTE 5 % (20.0-51.0); METAMYELOCYTE 1 % (0-0); NEUTROPHILS 86 % (42.0-75.2); PLATELET ESTIMATE NORMAL (NORMAL)
== END 2018-08-14 11:45 | disposition short-term general hospital (02) | DRG 871 ==
LOC: COL.ER 01:58 → ICU 03:02
PROVIDERS: Emergency Medicine; Internal Medicine; Internal Medicine Nephrology
DX: A41.9 Sepsis, unspecified organism (principal); N18.6 End stage renal disease; R65.21 Severe sepsis with septic shock; I30.9 Acute pericarditis, unspecified; I50.32 Chronic diastolic (congestive) heart failure; I13.2 Hypertensive heart and chronic kidney disease with heart failure and with stage 5 chronic kidney disease, or end stage renal disease; E87.2 Acidosis; E87.1 Hypo-osmolality and hyponatremia; E11.22 Type 2 diabetes mellitus with diabetic chronic kidney disease; Z99.2 Dependence on renal dialysis; E11.42 Type 2 diabetes mellitus with diabetic polyneuropathy; E78.5 Hyperlipidemia, unspecified; J45.909 Unspecified asthma, uncomplicated; D63.1 Anemia in chronic kidney disease; E11.319 Type 2 diabetes mellitus with unspecified diabetic retinopathy without macular edema; E66.01 Morbid (severe) obesity due to excess calories; Z68.31 Body mass index [BMI] 31.0-31.9, adult; E11.51 Type 2 diabetes mellitus with diabetic peripheral angiopathy without gangrene; E11.43 Type 2 diabetes mellitus with diabetic autonomic (poly)neuropathy; K31.84 Gastroparesis; G89.29 Other chronic pain; E87.5 Hyperkalemia; Z95.820 Peripheral vascular angioplasty status with implants and grafts; I48.91 Unspecified atrial fibrillation; E11.65 Type 2 diabetes mellitus with hyperglycemia; L89.619 Pressure ulcer of right heel, unspecified stage
CPT/HCPCS: A4216; J0692; J0882; J1160; J1200; J1644; J1650; J1720; J1815; J1956; J3370; J7040; J7050; J7060

== ENCOUNTER 2018-10-22 06:14 | Inpatient (IN) | payer OTHER, MEDICARE, MEDICAID ==
--- NOTE | 2018-10-19 19:57 | NUR ---
LM on pt's voicemail in regards to procedure instructions.
[2018-10-22] VITALS (13 sets, daily range): BP systolic 123–168; BP diastolic 43–78; PULSE 40–60; TEMP 97.4–98.5
[~2018-10-22] VITALS: Ht 167.6 cm; Wt 83.0 kg
[~2018-10-22 06:14] MED LIST changes: +CENTRUM1 TA1 PO; +DULCOLAX S10 MG/SUPP RC; +GERI-TUSSI100 MG/5 M PO; +MILK OF MA400 MG/52 PO; +PLAVIX 75MG TAB75 MG PO; +PROTONIX 40MG T40 MG PO; +SENNA-LAX8.6 MG PO; -SENNA8.6 MG PO
[2018-10-22 07:16] LABS: HEMOGLOBIN 10.6 g/dl (12.5-16.0); MEAN CELL VOLUME 97 fl (80.0-100.0); MEAN CORPUSCULAR HEMOGLOBIN 31 pg (27.0-31.0); MEAN CORPUSCULAR HGB CONC 32 g/dl (33.0-37.0); MEAN PLATELET VOLUME 10.4 fl (7.4-10.4); PLATELET COUNT 142 K/mm3 (130-400); RED BLOOD COUNT 3.47 M/mm3 (4.10-5.30); REDCELL DISTRIBUTION WIDTH-CV 16.1 % (11.5-14.5)
[2018-10-22 07:18] LABS: HEMATOCRIT 33.6 % (37.0-47.0)
[2018-10-22 07:23] LABS: PROTHROMBIN TIME 11.4 SECONDS (9.7-12.8)
[2018-10-22 07:26] LABS: CALCIUM 9.9 mg/dL (8.4-10.2); CREATININE, serum 3.7 mg/dL (0.52-1.25); POTASSIUM 5.5 mmol/L (3.4-5.0)
[2018-10-22] MEDS ORDERED: COUMADIN 2MG2 MG/TAB PO (09:10)
[2018-10-22] MEDS ORDERED: OXY IR5 MG PO ×2 (09:12)
[2018-10-22] MEDS ORDERED: BENADRYL25 M2 PO (09:16)
[2018-10-22] MEDS ORDERED: CLARITIN 1010 MG/TAB PO (09:18)
[2018-10-22] MEDS ORDERED: MUCINEX DM 30 M1 TE1 PO (09:20)
[2018-10-22] MEDS ORDERED: CORDARONE200 MG/TAB PO (09:24)
[2018-10-22] MEDS ORDERED: NYAMYC100000 U/G TP (09:30)
[2018-10-22] MEDS ORDERED: NEPHPLEX RX1 TAB PO (09:31)
--- NOTE | 2018-10-22 13:05 | NUR ---
PT ARRIVED FROM SURGERY VIA BED. PT HAS SLING ON RIGHT ARM, DRSG WITH PAPER TAPE AND GAUZE OVER RIGHT UPPER CHEST AREA WHICH IS CLEAN, DRY, INTACT, AND NO BRUISING, OR HEMATOMA. PT DENIES PAIN AT THIS TIME. PT ADVISES THAT DRSG ON LEFT ANKLE IS BECAUSE OF AN ULCER FROM A BED SORE AND THAT THE RIGHT ANKLE HAS GUAZE AROUND IT A PREVENATIVE MEASURE. PT IS WHEEL CHAIR BOUND AND CAN STAND TO PIVOT TRANSFER, BUT STILL NEEDS ASSISTANCE OF 2. PT ON DIALYSIS AND GOES ON MONDAY, MONDAY, AND MONDAY. PT HAS FISTULA ON LEFT UPPER ARM. RESTRICTION BAND PLACE ON ARM. PT ORDERED LUNCH AND WAS FEED BY ME, BECAUSE SHE SAYS THAT SHE COULD NOT FEED HERSELF WITH HER LEFT HAND AND WAS TOLD NOT TO USE HER RIGHT HAND. PT ATE 100% OF LUNCH. PT ADVISES THAT SHE IS NORMALLY ON A FLUID RESTRICTION OF 1,000 ML PER DAY. PT WAS GIVEN 300 ML OF WATER AT THIS TIME.
--- NOTE | 2018-10-22 19:25 | NUR ---
PT HAD SOME C/O PAIN IN RIGHT CHEST AREA AND WAS GIVEN PAIN MEDICATION. PT WAS FEED A SNACK AROUND 1600 AND THEN FED SUPPER WHICH PT ORDERED A DOUBLE PORTION. PT WAS ASSISTED UP TO BEDSIDE COMMODE AND THEN BACK TO BED. PT HAD A SMALL BM. PT HAS CALL LIGHT IN REACH. PT HAD CONCERNS ABOUT DIALYSIS TOMORROW, BECAUSE THAT IS HER NORMAL DAY. DR. BECK WAS CONSULTED. PT RESTING IN BED AND IS COMFORTABLE AT THIS TIME. NO FURTHER NEEDS.
--- NOTE | 2018-10-22 22:32 | NUR ---
PT HAS A OLD SCARE ON HIMANSHU- BARRIER CREAM APPLIED. HEELS ARE WRAPPED AND PT REPORTS DRESSING ARE CHANGED IN AM. BM YESTERDAY- EVERY OTHER DAY NORMAL FOR PT. LUNGS- RIGHT LL CRACKLES. NO PAIN. NO NEEDS AT THIS TIME. CALL LIGHT IN REACH. BED ALARM ON.
[2018-10-23 00:46] VITALS: BP 131/50; PULSE 61; TEMP 98.5
--- NOTE | 2018-10-23 05:22 | NUR ---
pt had an uneventfu night. turned Q2. pain in abd-prn meds given and reports relief. no soa. right arm in sling. IV flushes well, no redness, no swelling no needs at this time. call light in reach
[2018-10-23 05:37] VITALS: BP 146/57; PULSE 60; TEMP 98
[2018-10-23] MEDS ORDERED: RENAGEL800 MG PO (06:37)
[2018-10-23 07:00] VITALS: BP 134/55; PULSE 65; TEMP 98
--- NOTE | 2018-10-23 07:00 | NUR ---
Report on to TERRI Zepeda.
--- NOTE | 2018-10-23 07:20 | NUR ---
Assessment completed. VSS. Resting in bed. Rt side drsg to chest wall CDI. Telemetry on. Rt arm in sling. Bilateral gauze drsg to heels CDI. CMS checks normal and bilaterally equal. INT to Rt wrist CDI. Fistula is intact and patent. Pt. complains of no pain.
--- NOTE | 2018-10-23 07:22 | NUR ---
pt dressing clean dry and intact throughout night. report given to TERRI Zepeda. pt reports no needs
--- NOTE | 2018-10-23 09:31 | NUR ---
Pt wheeled down to dialysis at this time.
--- NOTE | 2018-10-23 09:43 | NUR ---
Pt assessment complete. Pt is A/O x3 her breathing is even and unlabored on RA. Pt denies SOB. No pain at this time. Soreness to R chest, site CDI. R arm in sling. Pt assisted to bedside cammode with assistance of two. Will go to dialysis this morning. No N/V.
[2018-10-23] MEDS ORDERED: NORVASC 5MG5 MG/TAB PO (11:13)
[2018-10-23] MEDS ORDERED: CLEOCIN HCL300 MG PO (11:14)
[2018-10-23] MEDS ORDERED: PACERONE100 MG PO (11:18)
[2018-10-23] MEDS ORDERED: PACERONE200 MG PO (11:20)
--- NOTE | 2018-10-23 11:32 | NUR ---
Contacted by dialysis nurse requesting a pain med for patient, Roxicodone taken down to dialysis for patient.
--- NOTE | 2018-10-23 11:34 | NUR ---
Pt. transferred to dialysis on second floor via hospital bed. Stated she was comfortable and was asleep when I left the area @ 1030.
--- NOTE | 2018-10-23 13:38 | NUR ---
KELLY met with patient to discuss discharge planning. She resides at [facility] in jail care. Her pcp is Dr sams and she obtains her medications from [facility]. Patient is dc back to [facility] today for jail care. DC faxed and wheelchair van transport set for 3/3:30pm. There are no other discharge needs at this time.
--- NOTE | 2018-10-23 15:39 | NUR ---
Pt left facility with [employer] employee at this time. IF to [facility] dc'd, catheter tip intact.
--- NOTE | 2018-10-23 15:49 | NUR ---
Pt report given to Lianet.
== END 2018-10-23 15:50 | DRG 242 ==
LOC: COL.CAR 06:14 → EDSTATUS 09:15 → COL.CAR 09:15 → MEDICAL 12:40 → COL.CAR 10-23 09:51 → MEDICAL 10-23 09:51
PROVIDERS: ADMIT Internal Medicine Cardiovascular Disease
PROC: 0JH606Z Insertion of Pacemaker, Dual Chamber into Chest Subcutaneous Tissue and Fascia, Open Approach (ICD-10-PCS; principal; 2018-10-22)
PROC: 02H63JZ Insertion of Pacemaker Lead into Right Atrium, Percutaneous Approach (ICD-10-PCS; 2018-10-22)
PROC: 02HK3JZ Insertion of Pacemaker Lead into Right Ventricle, Percutaneous Approach (ICD-10-PCS; 2018-10-22)
PROC: 5A1D70Z Performance of Urinary Filtration, Intermittent, Less than 6 Hours Per Day (ICD-10-PCS; 2018-10-23)
DX: I44.1 Atrioventricular block, second degree (principal); N18.6 End stage renal disease; I13.2 Hypertensive heart and chronic kidney disease with heart failure and with stage 5 chronic kidney disease, or end stage renal disease; I50.32 Chronic diastolic (congestive) heart failure; N25.81 Secondary hyperparathyroidism of renal origin; I48.0 Paroxysmal atrial fibrillation; E11.22 Type 2 diabetes mellitus with diabetic chronic kidney disease; Z99.2 Dependence on renal dialysis; E78.5 Hyperlipidemia, unspecified; E11.40 Type 2 diabetes mellitus with diabetic neuropathy, unspecified; J45.909 Unspecified asthma, uncomplicated; I73.9 Peripheral vascular disease, unspecified; Z95.820 Peripheral vascular angioplasty status with implants and grafts; E11.319 Type 2 diabetes mellitus with unspecified diabetic retinopathy without macular edema; D63.1 Anemia in chronic kidney disease; G89.29 Other chronic pain; E87.5 Hyperkalemia
CPT/HCPCS: OP; C1769; C1785; C1898; J2250; J3010; J7030

== ENCOUNTER → 2018-12-27 | Outpatient (REF) ==
[~2018-12-27] MED LIST changes: +CLARITIN 1010 MG/TAB PO; +CLEOCIN HCL300 MG PO; +CORDARONE200 MG/TAB PO; +COUMADIN 2MG2 MG/TAB PO; +MUCINEX DM 30 M1 TE1 PO; +NEPHPLEX RX1 TAB PO; +NORVASC 5MG5 MG/TAB PO; +NYAMYC100000 U/G TP; +OXY IR5 MG PO; +PACERONE100 MG PO; +PACERONE200 MG PO
[2018-12-27 13:46] LABS: COLLECTION METHOD CLEAN CATCH
[2018-12-27 14:01] LABS: BUDDING YEAST Present /hpf; MUCOUS Present /lpf; PH 8 (5-8); SQUAMOUS EPITHELIAL 0-2 /hpf; URINE APPEARANCE Turbid; URINE BACTERIA Moderate /hpf; URINE BILIRUBIN Negative (NEGATIVE); URINE BLOOD 2+ (NEGATIVE); URINE COLOR Amber; URINE GLUCOSE Negative (NEGATIVE); URINE KETONE Negative (NEGATIVE); URINE LEUKOCYTE ESTERASE 2+ (NEGATIVE); URINE NITRATE Negative (NEGATIVE); URINE PROTEIN(semi-quant) 2+ (NEGATIVE); URINE RBC 20-50 /hpf; URINE UROBILINOGEN Negative (NEGATIVE); URINE WBC >50 /hpf
== END ==
LOC: ZCOL.LAB 13:45
PROVIDERS: Internal Medicine
DX: N39.0 Urinary tract infection, site not specified (principal)

== ENCOUNTER → 2019-01-10 | Outpatient (REF) | LOC: ZCOL.LAB 12:15 | PROVIDERS: Internal Medicine | DX: Z01.89 Encounter for other specified special examinations (principal) ==

== ENCOUNTER 2019-01-30 17:00 | Inpatient (IN) | payer OTHER, MEDICARE, MEDICAID ==
[~2019-01-30] VITALS: Ht 167.6 cm; Wt 96.8 kg
[~2019-01-30 17:00] MED LIST changes: -AURYXIA1 GM; -CEFTIN500 MG PO; -COUMADIN4 MG PO; -PROTONIX20 MG PO; -SMZ/TMPDS PO; -VITAMIN C500 MG PO
[2019-01-30 17:48] VITALS: BP 96/76; PULSE 60; TEMP 98.3
[2019-01-30] MEDS ORDERED: REFRESH TEARS 330 ML OP (18:13)
[2019-01-30] MEDS ORDERED: PROTONIX20 MG PO (18:15)
[2019-01-30] MEDS ORDERED: AURYXIA1 GM (18:16)
[2019-01-30] MEDS ORDERED: COUMADIN4 MG PO (18:17)
[2019-01-30] MEDS ORDERED: VITAMIN C500 MG PO (18:21)
--- NOTE | 2019-01-30 18:39 | NUR ---
Pt admitted to unit direct admit. Pt lives at [facility]. Pt has left heel ulcer with small amt yellow drainage noted. Pt denies SOB or pain. Pt has left upper arm fistula restricted extremity. Pt has call light in reach.
[2019-01-30 18:49] VITALS: BP 96/76; PULSE 60; TEMP 98.3
[2019-01-30 22:44] LABS: BASO % 0.3 % (0.0-2.0); EOS # 0.2 (0.0-0.7); EOS % 2.6 % (0-4.0); GRAN # 7.4 (1.4-6.5); GRAN % 80.2 % (42.2-75.2); HEMOGLOBIN 10.5 g/dl (12.5-16.0); LYMPH % 10.4 % (20.0-51.0); MEAN CELL VOLUME 99 fl (80.0-100.0); MEAN CORPUSCULAR HEMOGLOBIN 32 pg (27.0-31.0); MEAN CORPUSCULAR HGB CONC 33 g/dl (33.0-37.0); MEAN PLATELET VOLUME 9.9 fl (7.4-10.4); MONO # 0.6 (0.1-0.6); PLATELET COUNT 111 K/mm3 (130-400); RED BLOOD COUNT 3.24 M/mm3 (4.10-5.30); REDCELL DISTRIBUTION WIDTH-CV 14.4 % (11.5-14.5)
[2019-01-30 22:54] LABS: HEMATOCRIT 31.9 % (37.0-47.0)
[2019-01-30 23:03] LABS: ALBUMIN 3.6 gm/dL (3.5-5.0); BILIRUBIN,TOTAL 0.5 mg/dL (0.0-1.0); CALCIUM 8.8 mg/dL (8.4-10.2); POTASSIUM 5.6 mmol/L (3.4-5.0); TOTAL PROTEIN 6.8 gm/dL (6.4-8.2)
[2019-01-30 23:04] LABS: CREATININE, serum 4.67 (0.52-1.25)
[2019-01-30 23:05] LABS: ERYTHROCYTE SEDIMENTATION RATE 50 mm/hr (0-30)
[2019-01-30 23:14] LABS: C-REACTIVE PROTEIN 17.2 mg/dL (0.0-0.9)
[2019-01-31 00:27] VITALS: BP 150/59; PULSE 59; TEMP 98.6
[2019-01-31 04:45] VITALS: BP 152/59; PULSE 59; TEMP 98
[2019-01-31 07:51] VITALS: BP 161/58; PULSE 59; TEMP 98.3
[2019-01-31 10:09] LABS: BASO % 0.3 % (0.0-2.0); EOS # 0.3 (0.0-0.7); EOS % 4.3 % (0-4.0); GRAN # 4.3 (1.4-6.5); GRAN % 73.9 % (42.2-75.2); HEMATOCRIT 29.1 % (37.0-47.0); HEMOGLOBIN 9.6 g/dl (12.5-16.0); LYMPH % 16.5 % (20.0-51.0); MEAN CELL VOLUME 97 fl (80.0-100.0); MEAN CORPUSCULAR HEMOGLOBIN 32 pg (27.0-31.0); MEAN CORPUSCULAR HGB CONC 33 g/dl (33.0-37.0); MEAN PLATELET VOLUME 9.1 fl (7.4-10.4); MONO # 0.3 (0.1-0.6); MONO % 4.5 % (1.7-9.3); PLATELET COUNT 102 K/mm3 (130-400); REDCELL DISTRIBUTION WIDTH-CV 14.1 % (11.5-14.5)
[2019-01-31 10:33] LABS: ALBUMIN 3.2 gm/dL (3.5-5.0); CALCIUM 8.5 mg/dL (8.4-10.2); PHOSPHOROUS 5.3 mg/dL (2.5-4.5); POTASSIUM 4.6 mmol/L (3.4-5.0)
[2019-01-31 10:40] LABS: CREATININE, serum 4.02 (0.52-1.25)
--- NOTE | 2019-01-31 12:45 | NUR ---
Report from TERRI Aponte
[2019-01-31 12:50] LABS: INR 1.1 (0.8-3.0); PROTHROMBIN TIME 13.2 SECONDS (9.7-12.8)
--- NOTE | 2019-01-31 14:15 | NUR ---
Report given to TERRI Mcmullen to resume care. No change throughout the morning. WBC 5.8 last and the patient completed dialysis without complication.
[2019-01-31 14:24] VITALS: BP 136/47; PULSE 60; TEMP 98.3
--- NOTE | 2019-01-31 15:42 | NUR ---
KELLY met with the patient to discuss discharge plan. The patient resides at [facility] for long-term care. She states that she is waiting until a handicap accessible apartment comes available closer to her home town, [place]. The patient states she plans to return back to [facility] upon discharge. Patient choice form signed by the patient and she was provided a copy. The patient's PCP is Dr. Callie Sosa and her advanced directives are in EMR. KELLY contacted and faxed updates to Fercho at [facility]. KELLY to continue to follow.
--- NOTE | 2019-01-31 17:54 | NUR ---
Patient resting in bed since returning from dialysis. VS stable. IV CDI. Fistula site CDI, gauze and paper tape covering. Denies pain and discomfort. No further needs expressed from patient. Call light within reach. Will continue to monitor
[2019-01-31 20:30] VITALS: BP 138/54; PULSE 54; TEMP 98
[2019-01-31 22:48] VITALS: BP 134/46; PULSE 61; TEMP 98.4
[2019-02-01 00:38] VITALS: BP 134/46; PULSE 60; TEMP 98.4
[2019-02-01 04:23] VITALS: BP 135/49; PULSE 60; TEMP 97.9
[2019-02-01 06:54] LABS: BASO % 0.6 % (0.0-2.0); EOS # 0.3 (0.0-0.7); EOS % 4.9 % (0-4.0); GRAN # 4.1 (1.4-6.5); GRAN % 64.9 % (42.2-75.2); HEMOGLOBIN 10.2 g/dl (12.5-16.0); LYMPH # 1.2 (1.2-3.4); LYMPH % 18.9 % (20.0-51.0); MEAN CELL VOLUME 100 fl (80.0-100.0); MEAN CORPUSCULAR HEMOGLOBIN 32 pg (27.0-31.0); MEAN CORPUSCULAR HGB CONC 32 g/dl (33.0-37.0); MEAN PLATELET VOLUME 9.8 fl (7.4-10.4); MONO # 0.6 (0.1-0.6); MONO % 10.2 % (1.7-9.3); PLATELET COUNT 123 K/mm3 (130-400); RED BLOOD COUNT 3.15 M/mm3 (4.10-5.30); REDCELL DISTRIBUTION WIDTH-CV 14.4 % (11.5-14.5)
--- NOTE | 2019-02-01 07:00 | NUR ---
Report received from Frances Sainz last night. Pt resting in bed with lights off, denies needs, will continue to monitor.
[2019-02-01 07:04] LABS: ALBUMIN 3.3 gm/dL (3.5-5.0); CALCIUM 8.7 mg/dL (8.4-10.2); CREATININE, serum 3.66 (0.52-1.25); PHOSPHOROUS 6.1 mg/dL (2.5-4.5); POTASSIUM 5.5 mmol/L (3.4-5.0)
[2019-02-01 07:08] LABS: HEMATOCRIT 31.5 % (37.0-47.0)
[2019-02-01 07:28] LABS: INR 1.1 (0.8-3.0); PROTHROMBIN TIME 12.7 SECONDS (9.7-12.8)
[2019-02-01 07:45] VITALS: BP 156/53; PULSE 61; TEMP 97.7
--- NOTE | 2019-02-01 08:53 | NUR ---
Assessment charted. Pt resting in bed, denies pain. L heel dressing is CDI, will change today. AV fistula to SINDY, dressing removed and adhesive remover applied per pt for allergy to all tapes. Does not want breakfast, wants to continue to rest with lights off. Will provide, and continue to monitor.
[2019-02-01] MEDS ORDERED: CEFTIN500 MG PO (10:28)
[2019-02-01] MEDS ORDERED: SMZ/TMPDS PO (10:28)
[2019-02-01 10:54] VITALS: BP 156/53; PULSE 61; TEMP 97.7
--- NOTE | 2019-02-01 11:23 | NUR ---
First visit from the credit department manager. No needs right now.
[2019-02-01 11:48] VITALS: BP 154/52; PULSE 60; TEMP 98.1
--- NOTE | 2019-02-01 11:52 | NUR ---
The patient is to discharge today, 02/01, back to [facility] for long-term care. [facility] SW informed the patient and patient's nurse. They were both in agreeance. No additional needs at this time.
--- NOTE | 2019-02-01 12:10 | NUR ---
Changed dressing to L heel site, ucler is scabbed over and healing well. Denies needs, will continue to monitor.
--- NOTE | 2019-02-01 12:23 | NUR ---
Report called to Wendie TORRES. Pt will be prepped for discharge. Ordered herself lunch. Will be leaving with all belongings and escorted out by [facility], packet will be given to transport. Criteria met.
--- NOTE | 2019-02-01 14:35 | NUR ---
Pt left with [facility] staff.
== END 2019-02-01 14:35 | DRG 640 ==
LOC: MEDICAL 17:00
PROVIDERS: ADMIT Internal Medicine Nephrology
PROC: 5A1D70Z Performance of Urinary Filtration, Intermittent, Less than 6 Hours Per Day (ICD-10-PCS; principal; 2019-01-30)
DX: E87.5 Hyperkalemia (principal); N18.6 End stage renal disease; N39.0 Urinary tract infection, site not specified; N25.81 Secondary hyperparathyroidism of renal origin; E11.22 Type 2 diabetes mellitus with diabetic chronic kidney disease; Z99.2 Dependence on renal dialysis; D63.1 Anemia in chronic kidney disease; L89.629 Pressure ulcer of left heel, unspecified stage; E11.43 Type 2 diabetes mellitus with diabetic autonomic (poly)neuropathy; K31.84 Gastroparesis; K59.09 Other constipation; I73.9 Peripheral vascular disease, unspecified; I49.8 Other specified cardiac arrhythmias; Z95.0 Presence of cardiac pacemaker; E66.9 Obesity, unspecified; B96.1 Klebsiella pneumoniae [K. pneumoniae] as the cause of diseases classified elsewhere
CPT/HCPCS: A4216; J0713; J1644; J7030

== ENCOUNTER → 2019-01-30 | Outpatient (CLI) | payer OTHER, MEDICARE, MEDICAID ==
[~2019-01-30] MED LIST changes: +AURYXIA1 GM; +CEFTIN500 MG PO; +COUMADIN4 MG PO; +PROTONIX20 MG PO; +SMZ/TMPDS PO; +VITAMIN C500 MG PO
[2019-01-30 00:47] LABS: COLLECTION METHOD CLEAN CATCH
[2019-01-30 01:00] LABS: MUCOUS Present /lpf; PH 5 (5-8); URINE APPEARANCE Turbid; URINE BACTERIA Moderate /hpf; URINE BILIRUBIN Negative (NEGATIVE); URINE BLOOD 1+ (NEGATIVE); URINE COLOR Amber; URINE GLUCOSE 2+ (NEGATIVE); URINE KETONE Negative (NEGATIVE); URINE LEUKOCYTE ESTERASE 3+ (NEGATIVE); URINE NITRATE Negative (NEGATIVE); URINE PROTEIN(semi-quant) 2+ (NEGATIVE); URINE RBC 20-50 /hpf; URINE UROBILINOGEN Negative (NEGATIVE)
== END ==
LOC: ZCOL.LAB 00:42
PROVIDERS: Internal Medicine Nephrology
DX: Z01.89 Encounter for other specified special examinations (principal)

== ENCOUNTER 2019-03-04 11:39 | Emergency (ER) | payer OTHER, MEDICARE, MEDICAID ==
[~2019-03-04] VITALS: Ht 167.6 cm; Wt 96.8 kg
[~2019-03-04 11:39] MED LIST changes: +AURYXIA1 GM; +CEFTIN500 MG PO; +COUMADIN4 MG PO; +PROTONIX20 MG PO; +SMZ/TMPDS PO; +VITAMIN C500 MG PO
[2019-03-04 11:54] VITALS: TEMP 98.8
[2019-03-04] MEDS ORDERED: MIRALAX PA17 GM/Dose PO (12:36)
[2019-03-04 14:00] LABS: MEAN CELL VOLUME 100 fl (80.0-100.0); MEAN CORPUSCULAR HEMOGLOBIN 32 pg (27.0-31.0); MEAN CORPUSCULAR HGB CONC 32 g/dl (33.0-37.0); MEAN PLATELET VOLUME 9.8 fl (7.4-10.4); PLATELET COUNT 159 K/mm3 (130-400); RED BLOOD COUNT 3.15 M/mm3 (4.10-5.30); REDCELL DISTRIBUTION WIDTH-CV 14.3 % (11.5-14.5)
[2019-03-04 14:01] LABS: HEMATOCRIT 31.4 % (37.0-47.0)
[2019-03-04 14:11] LABS: ALBUMIN 3.6 gm/dL (3.5-5.0); BILIRUBIN,TOTAL 0.6 mg/dL (0.0-1.0); CALCIUM 9.3 mg/dL (8.4-10.2)
[2019-03-04] MEDS ORDERED: OMNICEF 300MG300 MG PO (14:15)
[2019-03-04] MEDS ORDERED: DOXYCYCLINE 10100 MG PO (14:16)
[2019-03-04 14:25] LABS: C-REACTIVE PROTEIN 12.2 mg/dL (0.0-0.9); CREATININE, serum 4.74 (0.52-1.25)
[2019-03-04 15:00] LABS: BAND 5 % (0-10); BASOPHIL 1 % (0-2); EOSINOPHIL 2 % (0-4); LYMPHOCYTE 19 % (20.0-51.0); METAMYELOCYTE 3 % (0-0); NEUTROPHILS 68 % (42.0-75.2); PLATELET ESTIMATE NORMAL (NORMAL)
[2019-03-04 17:20] VITALS: BP 183/72; PULSE 60
== END 2019-03-04 17:20 | disposition home or self-care (01) ==
LOC: COL.ER 11:39
PROVIDERS: Emergency Medicine
DX: L03.116 Cellulitis of left lower limb (principal); I12.0 Hypertensive chronic kidney disease with stage 5 chronic kidney disease or end stage renal disease; E11.22 Type 2 diabetes mellitus with diabetic chronic kidney disease; N18.6 End stage renal disease; D64.9 Anemia, unspecified; Z99.2 Dependence on renal dialysis; Z90.710 Acquired absence of both cervix and uterus; Z79.82 Long term (current) use of aspirin; Z79.01 Long term (current) use of anticoagulants
CPT/HCPCS: A4216; J0692

== ENCOUNTER → 2019-04-09 | Outpatient (CLI) | payer OTHER, MEDICARE, MEDICAID ==
[~2019-04-09] MED LIST changes: +DOXYCYCLINE 10100 MG PO; +OMNICEF 300MG300 MG PO
[2019-04-09 17:58] LABS: CHOLESTEROL RISK RATIO 4.5
== END ==
LOC: ZCOL.LAB 16:22
PROVIDERS: Nurse Practitioner
DX: E78.2 Mixed hyperlipidemia (principal)

== ENCOUNTER 2019-07-31 21:13 | Inpatient (IN) | payer OTHER, MEDICARE, MEDICAID ==
[~2019-07-31] VITALS: Ht 167.6 cm; Wt 115.2 kg
[~2019-07-31 21:13] MED LIST changes: +TYLENOL 500MG500 MG PO; -TYLENOL 8 HR PO
[2019-07-31 22:13] VITALS: BP 147/53; PULSE 60; TEMP 97.9
[2019-07-31 23:01] LABS: MEAN CELL VOLUME 104 fl (80.0-100.0); MEAN CORPUSCULAR HGB CONC 32 g/dl (33.0-37.0); MEAN PLATELET VOLUME 9.7 fl (7.4-10.4); PLATELET COUNT 179 K/mm3 (130-400); RED BLOOD COUNT 1.43 M/mm3 (4.10-5.30); REDCELL DISTRIBUTION WIDTH-CV 16.3 % (11.5-14.5)
[2019-07-31 23:05] LABS: HEMOGLOBIN 4.7 g/dl (12.5-16.0); MEAN CORPUSCULAR HEMOGLOBIN 33 pg (27.0-31.0)
[2019-07-31 23:06] LABS: HEMATOCRIT 14.8 % (37.0-47.0)
[2019-07-31 23:07] LABS: ALBUMIN 2.9 gm/dL (3.5-5.0); BILIRUBIN,TOTAL 0.2 mg/dL (0.0-1.0); CALCIUM 8.2 mg/dL (8.4-10.2); CREATININE, serum 3.1 (0.52-1.25); POTASSIUM 4.3 mmol/L (3.4-5.0); TOTAL PROTEIN 5.4 gm/dL (6.4-8.2)
[2019-07-31 23:13] LABS: INR 11.1 (0.8-3.0)
[2019-07-31 23:21] LABS: BAND 2 % (0-10); BASOPHIL 1 % (0-2); LYMPHOCYTE 27 % (20.0-51.0); NEUTROPHILS 68 % (42.0-75.2); PLATELET ESTIMATE NORMAL (NORMAL)
[2019-07-31 23:57] VITALS: BP 103/39; PULSE 60; TEMP 99.4
[2019-07-31 23:59] VITALS: BP 96/24; PULSE 60; TEMP 98.3
[2019-08-01] VITALS (10 sets, daily range): BP systolic 96–124; BP diastolic 24–57; PULSE 60–61; TEMP 97.5–99.1
[2019-08-01 01:39] LABS: CALCIUM 8.3 mg/dL (8.4-10.2); CREATININE, serum 1.95 (0.52-1.25); POTASSIUM 3.5 mmol/L (3.4-5.0)
[2019-08-01] MEDS ORDERED: CENTRUM1 TA1 PO (01:45)
[2019-08-01] MEDS ORDERED: NEURONTIN100 MG/CAP PO (01:47)
[2019-08-01] MEDS ORDERED: NEPHPLEX RX1 TAB PO (01:48)
[2019-08-01] MEDS ORDERED: VELTASSA8.4 GM PO (01:53)
[2019-08-01] MEDS ORDERED: AURYXIA1 GM PO (01:54)
[2019-08-01 02:30] LABS: HEMATOCRIT 22.7 % (37.0-47.0); HEMOGLOBIN 7.5 g/dl (12.5-16.0)
[2019-08-01 07:54] LABS: MEAN CORPUSCULAR HGB CONC 32 g/dl (33.0-37.0); MEAN PLATELET VOLUME 9.7 fl (7.4-10.4); PLATELET COUNT 141 K/mm3 (130-400); RED BLOOD COUNT 2.16 M/mm3 (4.10-5.30); REDCELL DISTRIBUTION WIDTH-CV 18.5 % (11.5-14.5)
[2019-08-01 07:55] LABS: ALBUMIN 2.8 gm/dL (3.5-5.0); CALCIUM 8.1 mg/dL (8.4-10.2); CREATININE, serum 2.43 (0.52-1.25); POTASSIUM 3.6 mmol/L (3.4-5.0)
[2019-08-01 07:58] LABS: INR 3.6 (0.8-3.0); PROTHROMBIN TIME 43.3 SECONDS (9.7-12.8)
[2019-08-01 08:02] LABS: HEMATOCRIT 20.3 % (37.0-47.0); HEMOGLOBIN 6.5 g/dl (12.5-16.0); MEAN CELL VOLUME 94 fl (80.0-100.0); MEAN CORPUSCULAR HEMOGLOBIN 30 pg (27.0-31.0)
[2019-08-01 08:44] LABS: ANISOCYTOSIS 3+; BAND 3 % (0-10); BASOPHIL 2 % (0-2); LYMPHOCYTE 22 % (20.0-51.0); METAMYELOCYTE 2 % (0-0); NEUTROPHILS 64 % (42.0-75.2); PLATELET ESTIMATE NORMAL (NORMAL)
[2019-08-01 08:45] LABS: HYPOCHROMIA 3+
[2019-08-02] VITALS (16 sets, daily range): BP systolic 113–152; BP diastolic 45–83; PULSE 59–66; TEMP 97–98.8
[2019-08-02 07:31] LABS: MEAN CELL VOLUME 94 fl (80.0-100.0); MEAN CORPUSCULAR HGB CONC 33 g/dl (33.0-37.0); MEAN PLATELET VOLUME 9.8 fl (7.4-10.4); PLATELET COUNT 150 K/mm3 (130-400); RED BLOOD COUNT 2.28 M/mm3 (4.10-5.30); REDCELL DISTRIBUTION WIDTH-CV 18.5 % (11.5-14.5)
[2019-08-02 07:32] LABS: HEMATOCRIT 21.5 % (37.0-47.0); MEAN CORPUSCULAR HEMOGLOBIN 31 pg (27.0-31.0)
[2019-08-02 07:39] LABS: ALBUMIN 2.6 gm/dL (3.5-5.0); CALCIUM 8.3 mg/dL (8.4-10.2); CREATININE, serum 3.72 (0.52-1.25); INR 2.3 (0.8-3.0); PHOSPHOROUS 3.9 mg/dL (2.5-4.5); POTASSIUM 4.1 mmol/L (3.4-5.0)
[2019-08-02 08:08] LABS: ANISOCYTOSIS 1+; BAND 4 % (0-10); EOSINOPHIL 4 % (0-4); LYMPHOCYTE 18 % (20.0-51.0); METAMYELOCYTE 1 % (0-0); NEUTROPHILS 70 % (42.0-75.2); PLATELET ESTIMATE NORMAL (NORMAL)
[2019-08-03] VITALS (9 sets, daily range): BP systolic 112–146; BP diastolic 23–53; PULSE 58–67; TEMP 97.9–98.8
[2019-08-03 08:12] LABS: BASO % 0.4 % (0.0-2.0); EOS # 0.2 (0.0-0.7); EOS % 3.1 % (0-4.0); GRAN # 5.2 (1.4-6.5); GRAN % 68.1 % (42.2-75.2); LYMPH # 1.4 (1.2-3.4); LYMPH % 18.5 % (20.0-51.0); MEAN CELL VOLUME 94 fl (80.0-100.0); MEAN CORPUSCULAR HGB CONC 33 g/dl (33.0-37.0); MEAN PLATELET VOLUME 9.3 fl (7.4-10.4); MONO # 0.6 (0.1-0.6); MONO % 7.9 % (1.7-9.3); PLATELET COUNT 140 K/mm3 (130-400); RED BLOOD COUNT 2.42 M/mm3 (4.10-5.30); REDCELL DISTRIBUTION WIDTH-CV 17.9 % (11.5-14.5)
[2019-08-03 08:24] LABS: INR 1.6 (0.8-3.0); PROTHROMBIN TIME 18.4 SECONDS (9.7-12.8)
[2019-08-03 08:53] LABS: ALBUMIN 2.5 gm/dL (3.5-5.0); CALCIUM 7.9 mg/dL (8.4-10.2); CREATININE, serum 2.81 (0.52-1.25); HEMATOCRIT 22.8 % (37.0-47.0); HEMOGLOBIN 7.5 g/dl (12.5-16.0); MEAN CORPUSCULAR HEMOGLOBIN 31 pg (27.0-31.0); PHOSPHOROUS 3.1 mg/dL (2.5-4.5); POTASSIUM 4.1 mmol/L (3.4-5.0)
[2019-08-04] VITALS (10 sets, daily range): BP systolic 99–145; BP diastolic 35–52; PULSE 59–90; TEMP 98.1–101.8
[2019-08-04 07:59] LABS: BASO % 0.3 % (0.0-2.0); EOS # 0.1 (0.0-0.7); EOS % 0.9 % (0-4.0); GRAN # 11.1 (1.4-6.5); GRAN % 83.6 % (42.2-75.2); LYMPH # 1.2 (1.2-3.4); MEAN CELL VOLUME 96 fl (80.0-100.0); MEAN CORPUSCULAR HGB CONC 32 g/dl (33.0-37.0); MEAN PLATELET VOLUME 9.5 fl (7.4-10.4); MONO # 0.7 (0.1-0.6); MONO % 5.1 % (1.7-9.3); PLATELET COUNT 136 K/mm3 (130-400); REDCELL DISTRIBUTION WIDTH-CV 18.3 % (11.5-14.5)
[2019-08-04 08:05] LABS: HEMATOCRIT 20.2 % (37.0-47.0); HEMOGLOBIN 6.5 g/dl (12.5-16.0); MEAN CORPUSCULAR HEMOGLOBIN 31 pg (27.0-31.0)
[2019-08-04 08:06] LABS: INR 1.2 (0.8-3.0); PROTHROMBIN TIME 14.5 SECONDS (9.7-12.8)
[2019-08-04 08:26] LABS: ALBUMIN 2.3 gm/dL (3.5-5.0); CREATININE, serum 3.87 (0.52-1.25); PHOSPHOROUS 3.7 mg/dL (2.5-4.5); POTASSIUM 4.6 mmol/L (3.4-5.0)
[2019-08-05] VITALS (14 sets, daily range): BP systolic 124–156; BP diastolic 33–64; PULSE 53–61; TEMP 97.6–99.7
[2019-08-05 11:41] LABS: BASO % 0.2 % (0.0-2.0); EOS # 0.2 (0.0-0.7); EOS % 1.1 % (0-4.0); GRAN # 11.1 (1.4-6.5); GRAN % 83.1 % (42.2-75.2); LYMPH # 1.2 (1.2-3.4); LYMPH % 8.7 % (20.0-51.0); MEAN CELL VOLUME 96 fl (80.0-100.0); MEAN CORPUSCULAR HGB CONC 33 g/dl (33.0-37.0); MEAN PLATELET VOLUME 9.3 fl (7.4-10.4); MONO # 0.8 (0.1-0.6); PLATELET COUNT 116 K/mm3 (130-400); RED BLOOD COUNT 1.88 M/mm3 (4.10-5.30); REDCELL DISTRIBUTION WIDTH-CV 17.3 % (11.5-14.5)
[2019-08-05 11:43] LABS: HEMATOCRIT 18.1 % (37.0-47.0); MEAN CORPUSCULAR HEMOGLOBIN 31 pg (27.0-31.0)
[2019-08-05 11:44] LABS: HEMOGLOBIN 5.9 g/dl (12.5-16.0)
[2019-08-05 11:48] LABS: INR 1.3 (0.8-3.0); PROTHROMBIN TIME 15.4 SECONDS (9.7-12.8)
[2019-08-05 12:06] LABS: ALBUMIN 2.1 gm/dL (3.5-5.0); CALCIUM 7.5 mg/dL (8.4-10.2); CREATININE, serum 5.59 (0.52-1.25); PHOSPHOROUS 4.4 mg/dL (2.5-4.5); POTASSIUM 5.4 mmol/L (3.4-5.0)
[2019-08-06 00:17] VITALS: BP 127/48; PULSE 62; TEMP 99.5
[2019-08-06 01:03] VITALS: BP 140/52; PULSE 60; TEMP 99.5
[2019-08-06 03:14] VITALS: BP 158/47; PULSE 60; TEMP 100.3
[2019-08-06 07:12] LABS: INR 1.2 (0.8-3.0); PROTHROMBIN TIME 14.1 SECONDS (9.7-12.8)
[2019-08-06 07:17] LABS: ALBUMIN 2.1 gm/dL (3.5-5.0); CALCIUM 7.5 mg/dL (8.4-10.2); CREATININE, serum 3.68 (0.52-1.25); PHOSPHOROUS 3.7 mg/dL (2.5-4.5); POTASSIUM 4.8 mmol/L (3.4-5.0)
[2019-08-06 07:44] LABS: BASO % 0.2 % (0.0-2.0); EOS # 0.1 (0.0-0.7); EOS % 0.5 % (0-4.0); GRAN # 14.5 (1.4-6.5); GRAN % 86.4 % (42.2-75.2); LYMPH % 5.9 % (20.0-51.0); MEAN CELL VOLUME 93 fl (80.0-100.0); MEAN CORPUSCULAR HGB CONC 34 g/dl (33.0-37.0); MONO # 1.1 (0.1-0.6); MONO % 6.3 % (1.7-9.3); PLATELET COUNT 124 K/mm3 (130-400); RED BLOOD COUNT 2.95 M/mm3 (4.10-5.30)
[2019-08-06 08:03] LABS: HEMATOCRIT 27.4 % (37.0-47.0); HEMOGLOBIN 9.2 g/dl (12.5-16.0); MEAN CORPUSCULAR HEMOGLOBIN 31 pg (27.0-31.0)
[2019-08-06 08:21] VITALS: BP 151/50; PULSE 61; TEMP 100.5
[2019-08-06 15:20] VITALS: BP 153/51; PULSE 62; TEMP 98.9
[2019-08-06 17:26] LABS: BASO % 0.2 % (0.0-2.0); EOS # 0.1 (0.0-0.7); EOS % 0.8 % (0-4.0); GRAN # 11.7 (1.4-6.5); GRAN % 84.4 % (42.2-75.2); LYMPH % 7.1 % (20.0-51.0); MEAN CELL VOLUME 93 fl (80.0-100.0); MEAN CORPUSCULAR HGB CONC 34 g/dl (33.0-37.0); MEAN PLATELET VOLUME 9.8 fl (7.4-10.4); MONO # 0.9 (0.1-0.6); MONO % 6.8 % (1.7-9.3); PLATELET COUNT 127 K/mm3 (130-400); RED BLOOD COUNT 2.82 M/mm3 (4.10-5.30)
[2019-08-06 17:35] LABS: HEMATOCRIT 26.1 % (37.0-47.0); HEMOGLOBIN 8.9 g/dl (12.5-16.0); MEAN CORPUSCULAR HEMOGLOBIN 32 pg (27.0-31.0)
[2019-08-06 19:30] VITALS: BP 132/39; PULSE 65; TEMP 98.9
[2019-08-07] VITALS (7 sets, daily range): BP systolic 105–145; BP diastolic 25–48; PULSE 60–80; TEMP 97.9–100.6
[2019-08-07 06:24] LABS: BASO # 0.1 (0.0-0.2); BASO % 0.3 % (0.0-2.0); EOS # 0.2 (0.0-0.7); EOS % 1.3 % (0-4.0); GRAN # 12.7 (1.4-6.5); GRAN % 82.6 % (42.2-75.2); LYMPH # 1.2 (1.2-3.4); LYMPH % 7.7 % (20.0-51.0); MEAN CELL VOLUME 94 fl (80.0-100.0); MEAN CORPUSCULAR HGB CONC 32 g/dl (33.0-37.0); MEAN PLATELET VOLUME 9.8 fl (7.4-10.4); MONO # 1.1 (0.1-0.6); MONO % 7.3 % (1.7-9.3); PLATELET COUNT 125 K/mm3 (130-400); RED BLOOD COUNT 2.62 M/mm3 (4.10-5.30); REDCELL DISTRIBUTION WIDTH-CV 17.2 % (11.5-14.5)
[2019-08-07 06:26] LABS: HEMATOCRIT 24.7 % (37.0-47.0); MEAN CORPUSCULAR HEMOGLOBIN 31 pg (27.0-31.0)
[2019-08-07 06:40] LABS: ALBUMIN 2.1 gm/dL (3.5-5.0); CALCIUM 7.6 mg/dL (8.4-10.2); CREATININE, serum 5.01 (0.52-1.25); PHOSPHOROUS 4.3 mg/dL (2.5-4.5); POTASSIUM 5.4 mmol/L (3.4-5.0)
[2019-08-07 08:28] LABS: PROTHROMBIN TIME 12.2 SECONDS (9.7-12.8)
[2019-08-08 03:35] VITALS: BP 112/41; PULSE 80
[2019-08-08 05:54] LABS: BASO % 0.3 % (0.0-2.0); EOS # 0.2 (0.0-0.7); EOS % 1.9 % (0-4.0); GRAN # 7.8 (1.4-6.5); GRAN % 76.2 % (42.2-75.2); HEMATOCRIT 20.9 % (37.0-47.0); HEMOGLOBIN 6.7 g/dl (12.5-16.0); INR 1.2 (0.8-3.0); LYMPH # 1.2 (1.2-3.4); LYMPH % 11.8 % (20.0-51.0); MEAN CELL VOLUME 96 fl (80.0-100.0); MEAN CORPUSCULAR HEMOGLOBIN 31 pg (27.0-31.0); MEAN CORPUSCULAR HGB CONC 32 g/dl (33.0-37.0); MEAN PLATELET VOLUME 9.8 fl (7.4-10.4); MONO # 0.9 (0.1-0.6); MONO % 8.4 % (1.7-9.3); PLATELET COUNT 127 K/mm3 (130-400); PROTHROMBIN TIME 13.6 SECONDS (9.7-12.8); RED BLOOD COUNT 2.18 M/mm3 (4.10-5.30); REDCELL DISTRIBUTION WIDTH-CV 17.3 % (11.5-14.5)
[2019-08-08 05:57] LABS: ALBUMIN 1.9 gm/dL (3.5-5.0); CALCIUM 7.4 mg/dL (8.4-10.2); CREATININE, serum 3.74 (0.52-1.25); PHOSPHOROUS 3.8 mg/dL (2.5-4.5); POTASSIUM 4.8 mmol/L (3.4-5.0)
[2019-08-08 10:30] VITALS: BP 114/25; PULSE 60; TEMP 98.2
[2019-08-08 11:04] VITALS: BP 129/44; PULSE 59
[2019-08-08 14:21] VITALS: BP 110/31; PULSE 59; TEMP 98.3
[2019-08-08 14:34] VITALS: BP 105/43; PULSE 57; TEMP 97.9
[2019-08-08 14:59] VITALS: BP 100/31; PULSE 60
== END 2019-08-08 16:10 | disposition short-term general hospital (02) | DRG 393 ==
LOC: ICU 21:13 → MEDICAL 22:00 → ICU 22:00 → MEDICAL 08-03 00:10
PROVIDERS: Internal Medicine Gastroenterology; Nurse Anesthetist, Certified Registered; ADMIT Internal Medicine Nephrology
PROC: 5A1D70Z Performance of Urinary Filtration, Intermittent, Less than 6 Hours Per Day (ICD-10-PCS; 2019-07-31)
PROC: 0DJ08ZZ Inspection of Upper Intestinal Tract, Via Natural or Artificial Opening Endoscopic (ICD-10-PCS; principal; 2019-08-02 07:30)
PROC: 0DJD8ZZ Inspection of Lower Intestinal Tract, Via Natural or Artificial Opening Endoscopic (ICD-10-PCS; 2019-08-02 07:30)
PROC: 0DBN8ZX Excision of Sigmoid Colon, Via Natural or Artificial Opening Endoscopic, Diagnostic (ICD-10-PCS; 2019-08-03)
DX: K63.3 Ulcer of intestine (principal); R57.8 Other shock; N18.6 End stage renal disease; K55.9 Vascular disorder of intestine, unspecified; D68.32 Hemorrhagic disorder due to extrinsic circulating anticoagulants; D62 Acute posthemorrhagic anemia; N25.81 Secondary hyperparathyroidism of renal origin; I13.2 Hypertensive heart and chronic kidney disease with heart failure and with stage 5 chronic kidney disease, or end stage renal disease; D63.1 Anemia in chronic kidney disease; E11.22 Type 2 diabetes mellitus with diabetic chronic kidney disease; G89.29 Other chronic pain; E11.51 Type 2 diabetes mellitus with diabetic peripheral angiopathy without gangrene; E11.43 Type 2 diabetes mellitus with diabetic autonomic (poly)neuropathy; E66.9 Obesity, unspecified; E78.5 Hyperlipidemia, unspecified; J45.909 Unspecified asthma, uncomplicated; I50.9 Heart failure, unspecified; M19.90 Unspecified osteoarthritis, unspecified site; G43.909 Migraine, unspecified, not intractable, without status migrainosus; K31.84 Gastroparesis; Z99.2 Dependence on renal dialysis; Z79.82 Long term (current) use of aspirin; Z79.891 Long term (current) use of opiate analgesic; Z79.01 Long term (current) use of anticoagulants; Z88.1 Allergy status to other antibiotic agents; Z88.2 Allergy status to sulfonamides; Z88.0 Allergy status to penicillin; Z91.018 Allergy to other foods; Z91.048 Other nonmedicinal substance allergy status; Z95.0 Presence of cardiac pacemaker; Z86.73 Personal history of transient ischemic attack (TIA), and cerebral infarction without residual deficits
CPT/HCPCS: A9560; J0882; J2597; J2704; J2765; J2916; J7030; P9016; Q9967

== ENCOUNTER → 2019-11-05 | Outpatient (CLI) | payer OTHER, MEDICARE, MEDICAID ==
[~2019-11-05] MED LIST changes: +AURYXIA1 GM PO; +NEURONTIN100 MG/CAP PO; +VELTASSA8.4 GM PO
[2019-11-05 13:09] LABS: COLLECTION METHOD CATHETER
[2019-11-05 13:45] LABS: MUCOUS Present /lpf; PH 7 (5-8); SQUAMOUS EPITHELIAL 0-2 /hpf; URINE APPEARANCE Cloudy; URINE BACTERIA Many /hpf; URINE BILIRUBIN Negative (NEGATIVE); URINE BLOOD 2+ (NEGATIVE); URINE COLOR Yellow; URINE GLUCOSE Negative (NEGATIVE); URINE KETONE Negative (NEGATIVE); URINE LEUKOCYTE ESTERASE 3+ (NEGATIVE); URINE NITRATE Negative (NEGATIVE); URINE PROTEIN(semi-quant) 2+ (NEGATIVE); URINE RBC 0-2 /hpf; URINE UROBILINOGEN Negative (NEGATIVE); URINE WBC >50 /hpf
== END ==
LOC: ZLAB.STJ 10:26
PROVIDERS: Internal Medicine Nephrology
DX: N39.0 Urinary tract infection, site not specified (principal)

== ENCOUNTER → 2019-12-17 | Outpatient (CLI) | payer OTHER, MEDICARE, MEDICAID ==
[~2019-12-17] MED LIST changes: +AMITRIPTYLINE H25 M1 PO; +COREG 6.256.25 MG/TA PO; +COZAAR 25MG25 MG/TAB PO; +LIORESAL 1010 MG/TAB PO; +MASON NATURAL2000 IU PO; -MELAT3MGTAB PO; +MELATONIN3 M1 PO; +NYSTATIN POWDER30 GM TOP
== END ==
LOC: ZCOL.LAB 17:32
DX: Z11.59 Encounter for screening for other viral diseases (principal); N18.6 End stage renal disease

== ENCOUNTER → 2020-02-03 | Outpatient (CLI) | payer MEDICARE, MEDICAID ==
[~2020-02-03] MED LIST changes: +KEPPRA 500MG500 MG PO; +KEPPRA250 MG PO; +PREMARIN0.45 MG PO
== END ==
LOC: ZLAB.STJ 13:45
DX: T42.6X1A Poisoning by other antiepileptic and sedative-hypnotic drugs, accidental (unintentional), initial encounter (principal)

== ENCOUNTER → 2020-02-06 | Outpatient (CLI) | payer MEDICARE, MEDICAID | LOC: ZLAB.STJ 14:42 | DX: Z11.59 Encounter for screening for other viral diseases (principal); Z01.84 Encounter for antibody response examination ==

== ENCOUNTER → 2020-04-23 | Outpatient (CLI) | payer MEDICARE, MEDICAID ==
[2020-04-23 12:02] LABS: COLLECTION METHOD IN
[2020-04-23 13:29] LABS: BUDDING YEAST Present /hpf; PH 7 (5-8); SQUAMOUS EPITHELIAL None Seen /hpf; URINE APPEARANCE Turbid; URINE BACTERIA None Seen /hpf; URINE BILIRUBIN Negative (NEGATIVE); URINE BLOOD 2+ (NEGATIVE); URINE COLOR Amber; URINE GLUCOSE 2+ (NEGATIVE); URINE KETONE Negative (NEGATIVE); URINE LEUKOCYTE ESTERASE 2+ (NEGATIVE); URINE NITRATE Negative (NEGATIVE); URINE PROTEIN(semi-quant) 2+ (NEGATIVE); URINE UROBILINOGEN Negative (NEGATIVE); URINE WBC >50 /hpf
== END ==
LOC: ZLAB.STJ 11:59
PROVIDERS: Family Medicine
DX: R82.79 Other abnormal findings on microbiological examination of urine (principal)

== ENCOUNTER 2020-05-13 08:08 | Outpatient (CLI) | payer MEDICARE, MEDICAID ==
[2020-05-13] VITALS (9 sets, daily range): BP systolic 170–208; BP diastolic 75–89; PULSE 64–114; TEMP 97.3
[~2020-05-13] VITALS: Ht 152.4 cm; Wt 109.5 kg
[2020-05-13] MEDS ORDERED: PREMARIN0.45 MG PO (09:48)
== END 2020-05-13 16:30 ==
LOC: COL.CAR 08:08
DX: T82.858A Stenosis of other vascular prosthetic devices, implants and grafts, initial encounter (principal); N18.4 Chronic kidney disease, stage 4 (severe); Z88.2 Allergy status to sulfonamides; Z88.1 Allergy status to other antibiotic agents; Z88.8 Allergy status to other drugs, medicaments and biological substances; I48.91 Unspecified atrial fibrillation; Z88.0 Allergy status to penicillin; Z91.018 Allergy to other foods
CPT/HCPCS: J0360; J1644; J2250; J3010; Q9967

== ENCOUNTER → 2020-05-20 | Outpatient (CLI) | payer MEDICARE, MEDICAID | END | disposition still patient (30) | LOC: COL.RAD | DX: M85.80 Other specified disorders of bone density and structure, unspecified site (principal); M25.474 Effusion, right foot; M25.471 Effusion, right ankle; R05 Cough ==

== ENCOUNTER 2020-05-27 16:34 | Emergency (ER) | payer MEDICARE, MEDICAID ==
[~2020-05-27] VITALS: Ht 165.1 cm; Wt 109.1 kg
[2020-05-27 16:39] VITALS: BP 180/74; TEMP 97.9
[2020-05-27] MEDS ORDERED: DOXYCYCLINE 10100 MG PO (18:14)
[2020-05-27 18:30] VITALS: PULSE 62
== END 2020-05-27 18:30 | disposition home or self-care (01) ==
LOC: COL.ER 16:34
DX: L03.115 Cellulitis of right lower limb (principal); I10 Essential (primary) hypertension; Z88.0 Allergy status to penicillin; Z88.2 Allergy status to sulfonamides; Z88.3 Allergy status to other anti-infective agents; Z88.8 Allergy status to other drugs, medicaments and biological substances; Z88.1 Allergy status to other antibiotic agents

== ENCOUNTER → 2020-05-29 | Outpatient (CLI) | payer MEDICARE, MEDICAID | LOC: COL.VAS 09:00 | DX: L03.115 Cellulitis of right lower limb (principal) ==

== ENCOUNTER → 2020-08-17 | Outpatient (CLI) | payer MEDICARE, MEDICAID | LOC: COL.RAD 13:37 | DX: M81.0 Age-related osteoporosis without current pathological fracture (principal); T85.698D Other mechanical complication of other specified internal prosthetic devices, implants and grafts, subsequent encounter; I73.9 Peripheral vascular disease, unspecified; Z98.1 Arthrodesis status ==

== ENCOUNTER 2020-09-03 14:19 | Emergency (ER) | payer MEDICARE, MEDICAID ==
[~2020-09-03] VITALS: Ht 165.1 cm; Wt 111.4 kg
[2020-09-03 16:50] LABS: BASO % 0.4 % (0.0-2.0); EOS % 0.4 % (0-4.0); GRAN # 3.6 (1.4-6.5); GRAN % 78.5 % (42.2-75.2); HEMOGLOBIN 11.8 g/dl (12.5-16.0); LYMPH # 0.5 (1.2-3.4); LYMPH % 10.8 % (20.0-51.0); MEAN CELL VOLUME 102 fl (80.0-100.0); MEAN CORPUSCULAR HEMOGLOBIN 33 pg (27.0-31.0); MEAN CORPUSCULAR HGB CONC 32 g/dl (33.0-37.0); MEAN PLATELET VOLUME 10.6 fl (7.4-10.4); MONO # 0.4 (0.1-0.6); MONO % 8.8 % (1.7-9.3); PLATELET COUNT 90 K/mm3 (130-400); RED BLOOD COUNT 3.57 M/mm3 (4.10-5.30); REDCELL DISTRIBUTION WIDTH-CV 12.2 % (11.5-14.5)
[2020-09-03 17:04] LABS: ALBUMIN 3.9 gm/dL (3.5-5.0); BILIRUBIN,TOTAL 0.8 mg/dL (0.0-1.0); CALCIUM 8.9 mg/dL (8.4-10.2); CREATININE, serum 2.94 (0.52-1.25); POTASSIUM 3.9 mmol/L (3.4-5.0); TOTAL PROTEIN 7.1 gm/dL (6.4-8.2)
[2020-09-03 17:23] LABS: HEMATOCRIT 36.4 % (37.0-47.0)
[2020-09-03 17:46] LABS: TROPONIN-I 0.043 ng/mL (0.000-0.035)
[2020-09-03 19:26] VITALS: BP 209/83; PULSE 74; TEMP 98.9
== END 2020-09-03 19:29 | disposition home or self-care (01) ==
LOC: COL.ER 14:19
PROVIDERS: Emergency Medicine
DX: U07.1 COVID-19 (principal); N18.6 End stage renal disease; Z99.2 Dependence on renal dialysis; G89.29 Other chronic pain; E66.9 Obesity, unspecified; Z88.1 Allergy status to other antibiotic agents; Z88.0 Allergy status to penicillin; Z88.2 Allergy status to sulfonamides; Z88.8 Allergy status to other drugs, medicaments and biological substances; Z68.41 Body mass index [BMI] 40.0-44.9, adult

== ENCOUNTER → 2020-09-29 | Outpatient (CLI) | payer MEDICARE, MEDICAID ==
[2020-09-29 14:36] LABS: ALBUMIN 3.4 gm/dL (3.5-5.0); BILIRUBIN,TOTAL 0.6 mg/dL (0.0-1.0); CALCIUM 8.1 mg/dL (8.4-10.2); CREATININE, serum 4.38 (0.52-1.25); POTASSIUM 4.1 mmol/L (3.4-5.0); TOTAL PROTEIN 6.5 gm/dL (6.4-8.2)
== END ==
LOC: ZLAB.STJ 13:32
PROVIDERS: Nurse Practitioner Family
DX: E11.22 Type 2 diabetes mellitus with diabetic chronic kidney disease (principal); N18.6 End stage renal disease; Z99.2 Dependence on renal dialysis

== ENCOUNTER 2020-10-16 11:47 | Outpatient (CLI) | payer MEDICARE, OTHER, MEDICAID ==
[~2020-10-16] VITALS: Ht 165.1 cm; Wt 105.9 kg
[~2020-10-16 11:47] MED LIST changes: -TYLENOL 500MG500 MG PO
[2020-10-16] MEDS ORDERED: PHENYTEK200 MG PO (13:15)
[2020-10-16] MEDS ORDERED: TOPROL XL 50MG50 MG PO (13:16)
[2020-10-16] MEDS ORDERED: APRESOLINE 10MG10 MG PO (13:18)
[2020-10-16] MEDS ORDERED: COLACE 100100 MG/CAP PO (13:19)
[2020-10-16] MEDS ORDERED: DEXILANT60 MG PO (13:20)
[2020-10-16] MEDS ORDERED: NORVASC 10MG10 MG PO (13:23)
[2020-10-16] MEDS ORDERED: REQUIP0.25 MG PO (13:24)
[2020-10-16] MEDS ORDERED: DESYREL 100MG100 MG PO (13:25)
[2020-10-16] MEDS ORDERED: ZOFRAN 4MG T4 MG/TAB PO (13:25)
[2020-10-16] MEDS ORDERED: ANTIVERT 25MG25 MG PO (13:26)
[2020-10-16] MEDS ORDERED: PREPH RC (13:26)
[2020-10-16] MEDS ORDERED: IMODIUM 2MG CAPS2 MG PO (13:27)
[2020-10-16] MEDS ORDERED: BENADRYL25 M2 PO (13:28)
[2020-10-16] MEDS ORDERED: ROXICODONE 55 MG/TAB PO (13:29)
[2020-10-16] MEDS ORDERED: DELSYM30 MG/5 ML PO (13:31)
[2020-10-16] MEDS ORDERED: CATAPRES 0.1MG0.1 MG PO (13:31)
--- NOTE | 2020-10-16 13:35 | NUR ---
Med rec completed per SNF mar.
[2020-10-16 13:51] VITALS: BP 150/58; PULSE 62; TEMP 98.3
[2020-10-16 14:26] VITALS: BP 148/62; PULSE 67
[2020-10-16 15:45] VITALS: BP 154/61; PULSE 66
[2020-10-16 16:00] VITALS: BP 153/70; PULSE 71
[2020-10-16 16:15] VITALS: BP 150/55; PULSE 61
[2020-10-16 16:30] VITALS: BP 149/57; PULSE 65
--- NOTE | 2020-10-16 16:30 | NUR ---
Dr Herrera in to see pt.Pt ok to dc back to SNF per Dr Herrera.
--- NOTE | 2020-10-16 18:11 | NUR ---
INT remoed,catheter tip intact. Pt escorted out via wheelchair to SNF staff.Discharge instructions given to pt.pt verbalizes understanding.
== END 2020-10-16 18:12 | disposition home or self-care (01) ==
LOC: COL.CAR 11:47
DX: T82.858A Stenosis of other vascular prosthetic devices, implants and grafts, initial encounter (principal); I12.0 Hypertensive chronic kidney disease with stage 5 chronic kidney disease or end stage renal disease; N18.6 End stage renal disease; Z99.2 Dependence on renal dialysis; I48.91 Unspecified atrial fibrillation; Z88.2 Allergy status to sulfonamides; Z88.1 Allergy status to other antibiotic agents; Z88.0 Allergy status to penicillin; Z88.8 Allergy status to other drugs, medicaments and biological substances; Z91.018 Allergy to other foods; Z91.048 Other nonmedicinal substance allergy status
CPT/HCPCS: J1644; J2250; J3010; Q9967

== ENCOUNTER → 2020-10-19 | Outpatient (CLI) | payer MEDICARE, OTHER, MEDICAID ==
[~2020-10-19] MED LIST changes: +ANTIVERT 25MG25 MG PO; +APRESOLINE 10MG10 MG PO; +DELSYM30 MG/5 ML PO; +DESYREL 100MG100 MG PO; +DEXILANT60 MG PO; +FLEET MINE1 BOT/133 RC; +HYDROCORTISONE30 G3 TP; +PHENYTEK200 MG PO; +PHOSLO667 MG PO; +PREPH RC; +REQUIP0.25 MG PO; +TOPROL XL 50MG50 MG PO; +ZYRTEC 10MG10 MG PO
== END ==
LOC: ZLAB.STJ 15:37
DX: E11.69 Type 2 diabetes mellitus with other specified complication (principal)

== ENCOUNTER → 2020-11-13 | Outpatient (CLI) | payer MEDICARE, OTHER, MEDICAID ==
[2020-11-13 17:36] LABS: COLLECTION METHOD CATHETER
[2020-11-13 17:50] LABS: AMORPHOUS CRYSTAL Present /uL; MUCOUS Present /lpf; PH 6 (5-8); URINE APPEARANCE Turbid; URINE BACTERIA Many /hpf; URINE BILIRUBIN Negative (NEGATIVE); URINE BLOOD 2+ (NEGATIVE); URINE COLOR Yellow; URINE GLUCOSE Negative (NEGATIVE); URINE KETONE Negative (NEGATIVE); URINE LEUKOCYTE ESTERASE 2+ (NEGATIVE); URINE NITRATE Negative (NEGATIVE); URINE PROTEIN(semi-quant) 2+ (NEGATIVE); URINE RBC >50 /hpf; URINE UROBILINOGEN Negative (NEGATIVE)
== END ==
LOC: ZLAB.STJ 17:12
PROVIDERS: Family Medicine
DX: N39.0 Urinary tract infection, site not specified (principal)

== ENCOUNTER → 2020-12-18 | Outpatient (CLI) | payer OTHER, MEDICARE, MEDICAID ==
[2020-12-18 13:08] LABS: COLLECTION METHOD CATHETER
[2020-12-18 13:25] LABS: PH 6 (5-8); URINE APPEARANCE Turbid; URINE BACTERIA Many /hpf; URINE BILIRUBIN Negative (NEGATIVE); URINE BLOOD 2+ (NEGATIVE); URINE COLOR Yellow; URINE GLUCOSE Negative (NEGATIVE); URINE KETONE Negative (NEGATIVE); URINE LEUKOCYTE ESTERASE 1+ (NEGATIVE); URINE NITRATE Negative (NEGATIVE); URINE PROTEIN(semi-quant) 2+ (NEGATIVE); URINE RBC >50 /hpf; URINE UROBILINOGEN Negative (NEGATIVE); URINE WBC >50 /hpf
== END ==
LOC: ZLAB.STJ 10:50
PROVIDERS: Family Medicine
DX: Z01.89 Encounter for other specified special examinations (principal)

== ENCOUNTER → 2020-12-25 | Outpatient (CLI) | payer OTHER, MEDICARE, MEDICAID ==
[2020-12-25 05:56] LABS: COLLECTION METHOD CATHETER
[2020-12-25 06:15] LABS: PH 6 (5-8); URINE APPEARANCE Turbid; URINE BACTERIA Rare /hpf; URINE BILIRUBIN Negative (NEGATIVE); URINE BLOOD 2+ (NEGATIVE); URINE COLOR Yellow; URINE GLUCOSE Negative (NEGATIVE); URINE KETONE Negative (NEGATIVE); URINE LEUKOCYTE ESTERASE 2+ (NEGATIVE); URINE NITRATE Negative (NEGATIVE); URINE PROTEIN(semi-quant) 2+ (NEGATIVE); URINE RBC >50 /hpf; URINE UROBILINOGEN Negative (NEGATIVE)
== END ==
LOC: ZCOL.LAB 05:52
PROVIDERS: Family Medicine
DX: N39.0 Urinary tract infection, site not specified (principal)

== ENCOUNTER → 2021-01-13 | Outpatient (CLI) | payer OTHER, MEDICARE, MEDICAID ==
[2021-01-13 17:01] LABS: PH 6 (5-8); URINE APPEARANCE Turbid; URINE BACTERIA Many /hpf; URINE BILIRUBIN Negative (NEGATIVE); URINE BLOOD 3+ (NEGATIVE); URINE COLOR Amber; URINE GLUCOSE Negative (NEGATIVE); URINE KETONE Negative (NEGATIVE); URINE LEUKOCYTE ESTERASE 2+ (NEGATIVE); URINE NITRATE Negative (NEGATIVE); URINE PROTEIN(semi-quant) 3+ (NEGATIVE); URINE RBC >50 /hpf; URINE UROBILINOGEN Negative (NEGATIVE); URINE WBC >50 /hpf
[2021-01-14 10:12] LABS: COLLECTION METHOD CATHETER
== END ==
LOC: ZLAB.STJ 16:03
PROVIDERS: Family Medicine
DX: Z01.89 Encounter for other specified special examinations (principal)

== ENCOUNTER → 2021-02-24 | Outpatient (REF) ==
[2021-02-24 07:39] LABS: COLLECTION METHOD CATHETER
[2021-02-24 08:04] LABS: MUCOUS Present /lpf; PH 6 (5-8); URINE APPEARANCE Turbid; URINE BACTERIA Many /hpf; URINE BILIRUBIN Negative (NEGATIVE); URINE BLOOD 2+ (NEGATIVE); URINE COLOR Yellow; URINE GLUCOSE Negative (NEGATIVE); URINE KETONE Negative (NEGATIVE); URINE LEUKOCYTE ESTERASE 2+ (NEGATIVE); URINE NITRATE Negative (NEGATIVE); URINE PROTEIN(semi-quant) 2+ (NEGATIVE); URINE RBC 20-50 /hpf; URINE UROBILINOGEN Negative (NEGATIVE)
== END ==
LOC: ZLAB.STJ 07:37
PROVIDERS: Family Medicine
DX: R82.90 Unspecified abnormal findings in urine (principal)

== ENCOUNTER → 2021-04-27 | Outpatient (CLI) | payer OTHER, MEDICARE, MEDICAID | LOC: ZLAB.STJ 17:43 | DX: N39.0 Urinary tract infection, site not specified (principal) ==

== ENCOUNTER → 2021-05-18 | Outpatient (CLI) | payer MEDICARE, OTHER | LOC: MC.RAD 10:48 | DX: Z12.31 Encounter for screening mammogram for malignant neoplasm of breast (principal) ==

== ENCOUNTER 2021-07-13 05:52 | Outpatient (CLI) | payer MEDICARE, OTHER ==
[~2021-07-13] VITALS: Ht 165.2 cm; Wt 89.4 kg
[2021-07-13] VITALS (9 sets, daily range): BP systolic 121–169; BP diastolic 57–86; PULSE 60–61; TEMP 97.7
[~2021-07-13 05:52] MED LIST changes: -FLEET MINE1 BOT/133 RC; -HYDROCORTISONE30 G3 TP; -PHOSLO667 MG PO; -ZYRTEC 10MG10 MG PO
[2021-07-13] MEDS ORDERED: ZYRTEC 10MG10 MG PO (08:27)
[2021-07-13] MEDS ORDERED: MILK OF MA400 MG/52 PO (08:28)
[2021-07-13] MEDS ORDERED: DULCOLAX S10 MG/SUPP RC (08:29)
[2021-07-13] MEDS ORDERED: FLEET MINE1 BOT/133 RC (08:31)
[2021-07-13] MEDS ORDERED: HYDROCORTISONE30 G3 TP (08:31)
[2021-07-13] MEDS ORDERED: PHOSLO667 MG PO (08:32)
--- NOTE | 2021-07-13 08:32 | NUR ---
SEE MERGE FOR ALL MEDICATION ADMINISTRATION TIMES INTRA AND POST SEDATION ASSESSMENTS
--- NOTE | 2021-07-13 11:48 | NUR ---
Discharge instructions given to pt.pt verbalizes understanding.INt removed,catheter tip intact.Pt escorted out via wheelchair to SNF staff.
== END 2021-07-13 11:56 ==
LOC: COL.CAR 05:52
DX: T82.838A Hemorrhage due to vascular prosthetic devices, implants and grafts, initial encounter (principal); N19 Unspecified kidney failure; Z99.2 Dependence on renal dialysis; Z79.899 Other long term (current) drug therapy
CPT/HCPCS: J1644; J2250; J3010

== ENCOUNTER 2021-09-11 11:53 | Emergency (ER) | payer MEDICARE, OTHER ==
[~2021-09-11] VITALS: Ht 165.1 cm; Wt 100.0 kg
[~2021-09-11 11:53] MED LIST changes: +FLEET MINE1 BOT/133 RC; +HYDROCORTISONE30 G3 TP; +PHOSLO667 MG PO; +ZYRTEC 10MG10 MG PO
[2021-09-11 12:01] VITALS: TEMP 98.6
[2021-09-11 12:37] LABS: BASO # 0.1 K/mm3 (0.0-0.2); BASO % 0.8 % (0.0-2.0); EOS # 0.3 K/mm3 (0.0-0.7); EOS % 4.3 % (0.0-4.0); GRAN # 4.5 K/mm3 (1.4-6.5); GRAN % 72.4 % (42.2-75.2); HEMOGLOBIN 10.7 g/dl (12.5-16.0); LYMPH # 0.8 K/mm3 (1.2-3.4); LYMPH % 13.1 % (20.0-51.0); MEAN CELL VOLUME 100 fl (80.0-100.0); MEAN CORPUSCULAR HEMOGLOBIN 33 pg (27-31); MEAN CORPUSCULAR HGB CONC 33 g/dl (33.0-37.0); MONO # 0.6 K/mm3 (0.1-0.6); MONO % 8.9 % (1.7-9.3); PLATELET COUNT 100 K/mm3 (130-400); RED BLOOD COUNT 3.25 M/mm3 (4.10-5.30); REDCELL DISTRIBUTION WIDTH-CV 13.2 % (11.5-14.5)
[2021-09-11 12:38] LABS: HEMATOCRIT 32.4 % (37.0-47.0)
[2021-09-11 12:54] LABS: ALBUMIN 3.8 gm/dL (3.5-5.0); BILIRUBIN,TOTAL 0.7 mg/dL (0.2-1.2); C-REACTIVE PROTEIN 3.85 mg/dL (0.00-0.50); CALCIUM 8.6 mg/dL (8.4-10.2); CREATININE, serum 3.81 mg/dL (0.57-1.11); POTASSIUM 4.6 mmol/L (3.5-4.5); TOTAL PROTEIN 6.9 gm/dL (6.2-8.1)
[2021-09-11 14:12] VITALS: BP 166/72; PULSE 60
== END 2021-09-11 15:05 ==
LOC: COL.ER 11:53
PROVIDERS: Family Medicine
DX: S76.011A Strain of muscle, fascia and tendon of right hip, initial encounter (principal); I12.9 Hypertensive chronic kidney disease with stage 1 through stage 4 chronic kidney disease, or unspecified chronic kidney disease; N18.9 Chronic kidney disease, unspecified; Z90.710 Acquired absence of both cervix and uterus; Z79.899 Other long term (current) drug therapy; X50.9XXA Other and unspecified overexertion or strenuous movements or postures, initial encounter

== ENCOUNTER → 2021-09-20 | Outpatient (CLI) | payer MEDICARE, OTHER | LOC: COL.RAD 11:09 | DX: M25.561 Pain in right knee (principal); G89.29 Other chronic pain ==

== ENCOUNTER → 2021-11-26 | Outpatient (CLI) | payer MEDICARE, OTHER | LOC: ZLAB.STJ 16:01 | DX: G40.209 Localization-related (focal) (partial) symptomatic epilepsy and epileptic syndromes with complex partial seizures, not intractable, without status epilepticus (principal) ==

== ENCOUNTER 2021-12-29 10:55 | Inpatient (IN) | payer MEDICARE, OTHER ==
[~2021-12-29] VITALS: Ht 167.6 cm; Wt 108.0 kg
[2021-12-29 11:48] LABS: COLLECTION METHOD CATHETER
[2021-12-29 12:03] LABS: PH 7 (5-8); URINE APPEARANCE Turbid (CLEAR/HAZY); URINE BILIRUBIN Negative (NEGATIVE); URINE BLOOD 1+ (NEGATIVE); URINE COLOR Yellow (YELLOW); URINE GLUCOSE Negative (NEGATIVE); URINE KETONE Negative (NEGATIVE); URINE LEUKOCYTE ESTERASE 3+ (NEGATIVE); URINE NITRATE Negative (NEGATIVE); URINE PROTEIN(semi-quant) 3+ (NEGATIVE); URINE UROBILINOGEN Negative (NEGATIVE)
[2021-12-29 12:06] LABS: HEMATOCRIT 39.7 % (37.0-47.0); HEMOGLOBIN 12.7 g/dl (12.5-16.0); MEAN CELL VOLUME 105 fl (80.0-100.0); MEAN CORPUSCULAR HEMOGLOBIN 34 pg (27-31); MEAN CORPUSCULAR HGB CONC 32 g/dl (33.0-37.0); MEAN PLATELET VOLUME 10.7 fl (7.4-10.4); PLATELET COUNT 88 K/mm3 (130-400); RED BLOOD COUNT 3.78 M/mm3 (4.10-5.30); REDCELL DISTRIBUTION WIDTH-CV 13.8 % (11.5-14.5)
[2021-12-29 12:15] LABS: URINE BACTERIA Many /hpf (NONE SEEN)
[2021-12-29 12:27] LABS: INR 1.3 (0.8-3.0); PROTHROMBIN TIME 15.3 SECONDS (9.7-12.8)
[2021-12-29 12:30] LABS: ALBUMIN 3.7 gm/dL (3.5-5.0); BILIRUBIN,DIRECT 2.5 mg/dL (0.0-0.5); BILIRUBIN,TOTAL 3.2 mg/dL (0.2-1.2); CREATININE, serum 3.03 mg/dL (0.57-1.11); POTASSIUM 4.2 mmol/L (3.5-4.5); TOTAL PROTEIN 7.6 gm/dL (6.2-8.1)
[2021-12-29 12:39] LABS: BAND 3 % (0-10); EOSINOPHIL 1 % (0-4); LYMPHOCYTE 4 % (20.0-51.0); NEUTROPHILS 85 % (42.0-75.2); PLATELET ESTIMATE DECREASED (NORMAL)
[2021-12-29 12:40] LABS: OVALOCYTES 1+; TEAR DROP CELLS 1+
[2021-12-29] MEDS ORDERED: LOKELMA10 GM PO (14:20)
[2021-12-29] MEDS ORDERED: SODIUM BICARBO650 MG PO (14:21)
[2021-12-29] MEDS ORDERED: CLARITIN 1010 MG/TAB PO (14:22)
[2021-12-29] MEDS ORDERED: DESYREL DIVIDO150 M1 PO (14:23)
[2021-12-29] MEDS ORDERED: ROXICODONE 55 MG/TAB PO (14:43)
[2021-12-29] MEDS ORDERED: CORDARONE200 MG/TAB PO (14:44)
[2021-12-29] MEDS ORDERED: BAZA ANTIFUNGAL 2% TP (14:46)
[2021-12-29] MEDS ORDERED: PHOSLO667 MG PO (14:48)
--- NOTE | 2021-12-29 17:50 | NUR ---
PT ADMITTED TO UNIT. ADMISSION INTAKE AND ASSESSMENT COMPLETED. ORIENTED TO ROOM. FAMILY AT BEDSIDE. WILL CONTINUE TO MONITOR.
[2021-12-29] MEDS ORDERED: PREPH RC (18:19)
[2021-12-29] MEDS ORDERED: IMODIUM 2MG CAPS2 MG PO (18:32)
[2021-12-29] MEDS ORDERED: DELSYM COUGH-S180 ML PO (18:34)
[2021-12-29] MEDS ORDERED: CATAPRES 0.1MG0.1 MG PO (18:35)
[2021-12-29] MEDS ORDERED: MICATIN2% TP (18:36)
[2021-12-29] MEDS ORDERED: ROBITUSSIN A-C S1 M1 PO (18:36)
[2021-12-29] MEDS ORDERED: GENTLE LAXATIVE10 MG RC (18:37)
[2021-12-29] MEDS ORDERED: GOOD NEIGH1200 MG/15 PO (18:38)
[2021-12-29 20:30] VITALS: BP 188/71; PULSE 61; TEMP 98.6
--- NOTE | 2021-12-29 22:49 | NUR ---
Received report from day shift. Patient alert and oriented x4. Patient appears drowsy, but arousable. Patient states she has not had much sleep in the past two days. Assessment performed. PM meds administered. Patient aware of NPO at [facility] for MRI on 12/30. Call light within reach.
[2021-12-29 23:19] VITALS: BP 175/63; PULSE 63; TEMP 99.4
[2021-12-30] VITALS (7 sets, daily range): BP systolic 129–166; BP diastolic 46–64; PULSE 60–69; TEMP 98–100.2
--- NOTE | 2021-12-30 09:00 | NUR ---
PT PLEASANT,AOX4, DENIES PAIN, REPORTS ITCHING IN BLE AND REQUESTED LOTION TO BE APPLIED. LOTION APPLIED PER REQUEST, MEDICATIONS GIVEN WITH WATER, ATTEMPTED TO OBTAIN PACER DOWNLOAD AND WAND FOR DEVICE NEEDED CHARGED, WILL PERFORM LATER. PT MOVING IN BED BUT DOES NOT LIFE EXTREMITIES AT THIS TIME. PT BRIEF CHANGED WITH SMEAR OF BM. INITIALLY HELD STOOL SOFTENERS/LAXATIVES DUE TO FREQUENT BM BUT REQUESTING THEM DUE TO HISTORY OF CONSTIPATION.
[2021-12-30 09:16] LABS: BASO % 0.4 % (0.0-2.0); EOS # 0.3 K/mm3 (0.0-0.7); EOS % 3.6 % (0.0-4.0); GRAN # 5.7 K/mm3 (1.4-6.5); HEMOGLOBIN 10.8 g/dl (12.5-16.0); LYMPH # 0.3 K/mm3 (1.2-3.4); LYMPH % 4.3 % (20.0-51.0); MEAN CELL VOLUME 104 fl (80.0-100.0); MEAN CORPUSCULAR HEMOGLOBIN 34 pg (27-31); MEAN CORPUSCULAR HGB CONC 33 g/dl (33.0-37.0); MONO # 0.6 K/mm3 (0.1-0.6); PLATELET COUNT 93 K/mm3 (130-400); RED BLOOD COUNT 3.17 M/mm3 (4.10-5.30); REDCELL DISTRIBUTION WIDTH-CV 13.8 % (11.5-14.5)
[2021-12-30 09:20] LABS: HEMATOCRIT 32.8 % (37.0-47.0)
[2021-12-30 09:29] LABS: ALBUMIN 3.1 gm/dL (3.5-5.0); CREATININE, serum 4.19 mg/dL (0.57-1.11); PHOSPHOROUS 2.7 mg/dL (2.3-4.7); POTASSIUM 4.2 mmol/L (3.5-4.5)
--- NOTE | 2021-12-30 10:19 | NUR ---
Web Marketing Intern met with patient to discuss discharge planning. Patient lives at [facility] and sees Dr. Chung for primary care. Patient uses a wheelchair and walker and also needs assistance from [facility] staff with ADLS. Patient reports she is working on getting her DPOA-HC changed. Patient advised her , Pankaj (ph#[phone]) still lives in [place]. Patient plans to return to [facility] at time of discharge. KELLY contacted Gregg at [facility] and faxed clinical updates. Gregg confirmed patient is a LTC resident. KELLY also contacted patient's , Pankaj to touch base and review discharge plan. Discharge plan: Return to [facility]
[2021-12-30 13:23] LABS: ALBUMIN 3.2 gm/dL (3.5-5.0); BILIRUBIN,DIRECT 1.6 mg/dL (0.0-0.5); TOTAL PROTEIN 6.3 gm/dL (6.2-8.1)
--- NOTE | 2021-12-30 18:22 | NUR ---
PT PLEASANT, AOX4, DENIES PAIN, PHOSLO GIVEN WITH DINNER, UNEVENTFUL SHIFT, NO OTHER NEEDS
--- NOTE | 2021-12-30 21:00 | NUR ---
Patient is resting in bed, alert and oriented x 4, denies pain. Temp 100.2. LUE restricted. Assessment completed, medications provided. No ohter needs at this time. Call light within reach.
[2021-12-31 00:08] VITALS: BP 166/58; PULSE 73; TEMP 98
[2021-12-31 04:08] VITALS: BP 173/60; PULSE 68; TEMP 98.6
--- NOTE | 2021-12-31 05:59 | NUR ---
Patient was able to have some rest. She had some temperature 100.2. Reported to Polo who added Tylenol to her meds. One episode of hypertension >160 sistolyc. Hydralazine provided. Pt states that she has dialysis regularly at 530 am and she is used to wake up at 430 am. Awake since then. She has been NPO from midnight. Report will be given to day RN.
[2021-12-31 07:29] VITALS: BP 159/64; PULSE 64; TEMP 98.4
--- NOTE | 2021-12-31 10:16 | NUR ---
PATIENT COMPLAINT OF LOWER RIGHT BACK PAIN. TWO PERSON TURN. OPEN WOUND IN ABDOMINAL SKIN FOLD. CREAM APPLIED ON MOLD YARD SUPERVISOR, PER PATIENT. NO PAIN AT SITE, REFUSED POWDER AND ADDITIONAL CREAM APPLICATION. APPEARS MOISTURE RELATED. SKIN OTHERWISE INTACT. LUNGS CLEAR. STRONG MURMUR HEARD ON AUSCULTATION. MEDS TAKEN WHOLE WITH WATER. BS 82 THIS MORNING, PATIENT ASKED FOR GLUCOSE, STATED THAT IT IS TOO LOW FOR HER (HER BASE LINE IS " 110'S).GAVE PATIENT 120 OF JUICE. MRI SCHEDULED TODAY, DIALYSIS THIS AFTERNOON. POSSIBLE DISCHARGE TOMORROW PENDING GI.
[2021-12-31 11:43] VITALS: BP 141/53; PULSE 68; TEMP 97.9
[2021-12-31 15:34] VITALS: BP 143/50; PULSE 60; TEMP 98.5
--- NOTE | 2021-12-31 15:43 | NUR ---
Train Engineer faxed clinical updates to Gregg at [facility].
--- NOTE | 2021-12-31 18:26 | NUR ---
PATIENT PLESANT AND CALM THIS SHIFT. NO DIALYSIS TODAY. PLAN FOR [facility] IN THE MORNING THAN DISCHARGE HOME. PATIENT NEEDS REINFORCEMENT ON FLUID RESTRICTION MANAGEMENT. NO SIGNIFICANT EVENTS THIS SHIFT.
[2021-12-31 20:03] VITALS: BP 155/59; PULSE 59; TEMP 98.6
[2022-01-01 00:28] VITALS: BP 168/60; PULSE 60; TEMP 97.8
[2022-01-01 04:12] VITALS: BP 174/66; PULSE 60; TEMP 98.2
[2022-01-01 05:49] VITALS: BP 133/54; PULSE 60; TEMP 98.2
--- NOTE | 2022-01-01 06:00 | NUR ---
ASSESSMENT COMPLETE FOR THIS SHIFT. PT RESTING IN BED SLEEPING. PT DENIED PAIN, PALPITATIONS, N,V,D, SOB OR DIZZINESS. PT MENTIONED TODAY WOULD BE HER 62TH BIRTHDAY. OTHER THEN ASKING ME TO RUB LOTION ON HER LEGS AND FEET A COUPLE OF TIMES TONIGHT, PT EXPRESSED NO OTHER NEEDS AT THIS TIME. CALL LIGHT WITHIN REACH.
[2022-01-01 07:25] VITALS: BP 169/59; PULSE 61; TEMP 98
--- NOTE | 2022-01-01 08:36 | NUR ---
THE PATIENT IS HEADING TO DIALYSIS AT THIS TIME.
[2022-01-01 09:59] LABS: BASO % 0.8 % (0.0-2.0); EOS # 0.3 K/mm3 (0.0-0.7); EOS % 5.6 % (0.0-4.0); GRAN # 3.7 K/mm3 (1.4-6.5); GRAN % 73.4 % (42.2-75.2); HEMOGLOBIN 10.1 g/dl (12.5-16.0); LYMPH # 0.5 K/mm3 (1.2-3.4); LYMPH % 9.1 % (20.0-51.0); MEAN CELL VOLUME 100 fl (80.0-100.0); MEAN CORPUSCULAR HEMOGLOBIN 33 pg (27-31); MEAN CORPUSCULAR HGB CONC 33 g/dl (33.0-37.0); MEAN PLATELET VOLUME 10.7 fl (7.4-10.4); MONO # 0.5 K/mm3 (0.1-0.6); MONO % 10.5 % (1.7-9.3); PLATELET COUNT 96 K/mm3 (130-400); RED BLOOD COUNT 3.04 M/mm3 (4.10-5.30); REDCELL DISTRIBUTION WIDTH-CV 13.3 % (11.5-14.5)
[2022-01-01 10:01] LABS: HEMATOCRIT 30.5 % (37.0-47.0)
[2022-01-01 10:11] LABS: ALBUMIN 3.1 gm/dL (3.4-4.8); CALCIUM 7.8 mg/dL (8.4-10.2); CREATININE, serum 4.48 mg/dL (0.57-1.11); PHOSPHOROUS 2.3 mg/dL (2.3-4.7); POTASSIUM 4.1 mmol/L (3.5-4.5)
--- NOTE | 2022-01-01 11:49 | NUR ---
PATIENT TOLERATED HD TX WITH 5L OF FLUID REMOVED. NEXT PLANNED HD TX ON Monday01/03/22 @ [facility] @ 0600.
[2022-01-01 12:11] VITALS: BP 164/70; PULSE 62; TEMP 98.4
--- NOTE | 2022-01-01 14:02 | NUR ---
Notified that the patient is ready for discharge. Clinical updates and discharge orders faxed to Gregg at [facility]. Notified him that the patient is ready for dc and that she has her sling/wheelchair here with her. Gregg states that they can pick the patient up at 1345. Care team notified. Patients contacted and notified of patient discharging back to group home today. Discharge plan: [facility]
== END 2022-01-01 13:45 | disposition home or self-care (01) | DRG 441 ==
LOC: COL.ER 10:55 → MEDICAL 15:51
PROVIDERS: Emergency Medicine; Internal Medicine Gastroenterology; Registered Nurse; ADMIT Internal Medicine Nephrology
PROC: 5A1D70Z Performance of Urinary Filtration, Intermittent, Less than 6 Hours Per Day (ICD-10-PCS; principal; 2022-01-01)
DX: R17 Unspecified jaundice (principal); N18.6 End stage renal disease; I13.2 Hypertensive heart and chronic kidney disease with heart failure and with stage 5 chronic kidney disease, or end stage renal disease; I50.32 Chronic diastolic (congestive) heart failure; N25.81 Secondary hyperparathyroidism of renal origin; N39.0 Urinary tract infection, site not specified; E11.51 Type 2 diabetes mellitus with diabetic peripheral angiopathy without gangrene; E11.22 Type 2 diabetes mellitus with diabetic chronic kidney disease; E11.40 Type 2 diabetes mellitus with diabetic neuropathy, unspecified; E66.01 Morbid (severe) obesity due to excess calories; I48.0 Paroxysmal atrial fibrillation; E78.2 Mixed hyperlipidemia; G89.29 Other chronic pain; D63.1 Anemia in chronic kidney disease; K21.9 Gastro-esophageal reflux disease without esophagitis; D69.6 Thrombocytopenia, unspecified; I27.20 Pulmonary hypertension, unspecified; G40.909 Epilepsy, unspecified, not intractable, without status epilepticus; M81.0 Age-related osteoporosis without current pathological fracture; I16.0 Hypertensive urgency; B96.20 Unspecified Escherichia coli [E. coli] as the cause of diseases classified elsewhere; Z99.2 Dependence on renal dialysis; Z95.0 Presence of cardiac pacemaker; Z86.73 Personal history of transient ischemic attack (TIA), and cerebral infarction without residual deficits; Z20.822 Contact with and (suspected) exposure to COVID-19; Z68.37 Body mass index [BMI] 37.0-37.9, adult
CPT/HCPCS: J0360; J1815; J2185; J7030; Q5105; Q9967

== ENCOUNTER → 2022-03-10 | Outpatient (CLI) | payer MEDICARE, OTHER, MEDICAID ==
[~2022-03-10] MED LIST changes: +BAZA ANTIFUNGAL 2% TP; +DELSYM COUGH-S180 ML PO; +DESYREL DIVIDO150 M1 PO; +GENTLE LAXATIVE10 MG RC; +GOOD NEIGH1200 MG/15 PO; +LOKELMA10 GM PO; +MICATIN2% TP; +ROBITUSSIN A-C S1 M1 PO
== END ==
LOC: COL.RAD 03-08 07:30
DX: I51.7 Cardiomegaly (principal); R79.89 Other specified abnormal findings of blood chemistry

== ENCOUNTER → 2022-04-05 | Outpatient (CLI) | payer MEDICARE, OTHER, MEDICAID ==
[~2022-04-05] MED LIST changes: +COLLAGENASE 1 ML1 ML; +COLLAGENASE 1 ML1 ML PO; +PHOS LO PO
[2022-04-05 17:45] LABS: COLLECTION METHOD CATHETER
[2022-04-05 18:02] LABS: MUCOUS Present (NOT PRESENT); URINE BACTERIA Occasional /hpf (NONE SEEN); URINE RBC 20-50 /hpf (0-2); URINE WBC >50 /hpf (0-2)
[2022-04-05 18:21] LABS: URINE APPEARANCE Turbid (CLEAR/HAZY); URINE COLOR Red (YELLOW)
[2022-04-05 18:22] LABS: PH 7 (5-8); URINE BLOOD 3+ (NEGATIVE); URINE GLUCOSE Negative (NEGATIVE); URINE KETONE Negative (NEGATIVE); URINE NITRATE Negative (NEGATIVE); URINE PROTEIN(semi-quant) 3+ (NEGATIVE); URINE UROBILINOGEN Negative (NEGATIVE)
== END ==
LOC: ZLAB.STJ 17:40
PROVIDERS: Internal Medicine
DX: N39.0 Urinary tract infection, site not specified (principal)

== ENCOUNTER 2022-04-14 10:19 | Outpatient (CLI) | payer MEDICARE, OTHER, MEDICAID ==
[~2022-04-14 10:19] MED LIST changes: -COLLAGENASE 1 ML1 ML; -COLLAGENASE 1 ML1 ML PO; -PHOS LO PO
[2022-04-14] MEDS ORDERED: NORVASC 10MG10 MG PO (12:13)
[2022-04-14] MEDS ORDERED: COLLAGENASE 1 ML1 ML (12:14)
[2022-04-14] MEDS ORDERED: COLLAGENASE 1 ML1 ML PO (12:15)
[2022-04-14] MEDS ORDERED: PHOS LO PO (12:17)
[2022-04-14] MEDS ORDERED: HYDROCORTISONE30 G3 TP (12:20)
[2022-04-14 14:15] VITALS: BP 150/65; BP 150/66; PULSE 60
[2022-04-14 14:17] VITALS: BP 150/65; PULSE 60
[2022-04-14 15:33] VITALS: BP 159/70; PULSE 60
--- NOTE | 2022-04-14 15:55 | NUR ---
Patient A&O x 3, denies C/O acute issues. Bandaid to AV fistula D&I. Reviewed discharge instruction with patient, she stated she understoo, and signed them. Assister her with changing into clothes, then into her wheelchair using the khloe lift with the aide of another RN. Patient taken to front door and handed over to staff from [facility].
== END 2022-04-14 15:58 ==
LOC: COL.CAR 10:19
DX: T82.838A Hemorrhage due to vascular prosthetic devices, implants and grafts, initial encounter (principal); T82.858A Stenosis of other vascular prosthetic devices, implants and grafts, initial encounter
CPT/HCPCS: J2250; J3010

== ENCOUNTER 2022-06-29 13:32 | Emergency (ER) | payer MEDICARE, OTHER, MEDICAID ==
[~2022-06-29] VITALS: Ht 165.1 cm; Wt 100.2 kg
[~2022-06-29 13:32] MED LIST changes: +COLLAGENASE 1 ML1 ML; +COLLAGENASE 1 ML1 ML PO; +PHOS LO PO
[2022-06-29 15:30] VITALS: BP 127/77; PULSE 59
== END 2022-06-29 15:30 | disposition home or self-care (01) ==
LOC: COL.ER 13:32
DX: T82.590A Other mechanical complication of surgically created arteriovenous fistula, initial encounter (principal); E11.22 Type 2 diabetes mellitus with diabetic chronic kidney disease; I12.0 Hypertensive chronic kidney disease with stage 5 chronic kidney disease or end stage renal disease; N18.6 End stage renal disease; E66.9 Obesity, unspecified; Z28.310 Unvaccinated for COVID-19; Z68.36 Body mass index [BMI] 36.0-36.9, adult; Z99.2 Dependence on renal dialysis

== ENCOUNTER 2022-07-06 14:28 | Emergency (ER) | payer MEDICARE, OTHER, MEDICAID ==
[~2022-07-06] VITALS: Ht 167.6 cm; Wt 100.1 kg
[2022-07-06 14:34] VITALS: TEMP 98.2
[2022-07-06 16:16] VITALS: BP 153/66; PULSE 60
== END 2022-07-06 16:16 | disposition home or self-care (01) ==
LOC: COL.ER 14:28
DX: M79.89 Other specified soft tissue disorders (principal); Z28.310 Unvaccinated for COVID-19; Z95.828 Presence of other vascular implants and grafts

== ENCOUNTER → 2022-07-07 | Outpatient (CLI) | payer MEDICARE, OTHER, MEDICAID | LOC: COL.VAS 07:45 → EDSTATUS 07:47 → COL.VAS 07:49 | DX: M79.89 Other specified soft tissue disorders (principal) ==

== ENCOUNTER 2022-10-11 10:17 | Emergency (ER) | payer MEDICARE, OTHER, MEDICAID ==
[~2022-10-11] VITALS: Ht 167.6 cm; Wt 98.2 kg
[~2022-10-11 10:17] MED LIST changes: +CIPRO 500MG TA500 MG PO
[2022-10-11 12:00] LABS: BASO # 0.1 K/mm3 (0.0-0.2); BASO % 0.9 % (0.0-2.0); EOS # 0.2 K/mm3 (0.0-0.7); EOS % 4.4 % (0.0-4.0); GRAN # 3.9 K/mm3 (1.4-6.5); GRAN % 70.7 % (42.2-75.2); HEMOGLOBIN 10.3 g/dl (12.5-16.0); LYMPH # 0.5 K/mm3 (1.2-3.4); LYMPH % 9.7 % (20.0-51.0); MEAN CELL VOLUME 101 fl (80.0-100.0); MEAN CORPUSCULAR HEMOGLOBIN 33 pg (27-31); MEAN CORPUSCULAR HGB CONC 32 g/dl (33.0-37.0); MEAN PLATELET VOLUME 10.6 fl (7.4-10.4); MONO # 0.7 K/mm3 (0.1-0.6); MONO % 13.6 % (1.7-9.3); PLATELET COUNT 113 K/mm3 (130-400); RED BLOOD COUNT 3.15 M/mm3 (4.10-5.30); REDCELL DISTRIBUTION WIDTH-CV 15.1 % (11.5-14.5)
[2022-10-11 12:18] LABS: ALBUMIN 3.8 gm/dL (3.4-4.8); BILIRUBIN,TOTAL 0.9 mg/dL (0.2-1.2); CALCIUM 8.6 mg/dL (8.4-10.2); CREATININE, serum 4.04 mg/dL (0.57-1.11); POTASSIUM 4.3 mmol/L (3.5-4.5); TOTAL PROTEIN 7.1 gm/dL (6.2-8.1)
[2022-10-11 12:20] LABS: HEMATOCRIT 31.9 % (37.0-47.0)
[2022-10-11 14:43] LABS: TROPONIN-I 0.016 ng/mL (0.00-0.033)
[2022-10-11 16:33] VITALS: BP 181/82; PULSE 61; TEMP 98.3
== END 2022-10-11 17:44 | disposition short-term general hospital (02) ==
LOC: COL.ER 10:17
PROVIDERS: Emergency Medicine
DX: G81.94 Hemiplegia, unspecified affecting left nondominant side (principal); I67.9 Cerebrovascular disease, unspecified; G92.8 Other toxic encephalopathy; N39.0 Urinary tract infection, site not specified; E11.22 Type 2 diabetes mellitus with diabetic chronic kidney disease; N18.6 End stage renal disease; Z99.2 Dependence on renal dialysis; Z28.310 Unvaccinated for COVID-19
CPT/HCPCS: J0696; Q9967

== ENCOUNTER → 2022-10-23 | Outpatient (REF) | payer MEDICARE, OTHER, MEDICAID | LOC: ZCOL.LAB 10:10 | DX: K92.1 Melena (principal) ==

== ENCOUNTER → 2023-07-04 | Outpatient (CLI) | payer MEDICARE, OTHER, MEDICAID ==
[~2023-07-04] MED LIST changes: +CEPHALEXIN500 M1 PO; +CRANBERRY450 MG PO; +GOOD NEIGH1200 MG/15; +LAMICTAL 100MG100 MG PO; +MACROBID 1100 MG/CAP PO; +MYLANTA 150 ML150 M1 PO; +NIGHT TIME COL355 M1 PO; +PAMELOR 10MG10 MG PO; +ROBITUSSIN DM 105 ML PO; +SYNTHROID0.125 MG/T PO; +TEMOVATE0.05% TP; +TUMS500 MG PO; +URITRAX47 GM PO; +VITAMIN D31000 I1 PO; +VITAMINC500CH PO
== END ==
LOC: COL.RAD 06:51
DX: K59.00 Constipation, unspecified (principal); R63.0 Anorexia; R11.0 Nausea; R68.81 Early satiety